=== PATIENT | male | born 1950 ===

== ENCOUNTER 2023-10-29 03:04 | Emergency (ER) | payer MEDICARE, OTHER ==
--- NOTE | 2023-10-29 03:14 | ED ---
General Adult HPI - General Stated complaint: Fall Time Seen by Provider: 10/29/23 03:05 Source: patient, EMS, RN notes reviewed, old records reviewed Limitations: altered mental status - History of Present Illness Initial comments: 73-year-old male with history of dementia presents with unwitnessed fall, head injury. Patient is on aspirin, no other anticoagulants or antiplatelet medications. Patient points to the site of injury on the left cellulitis. He has a small superficial laceration. Uncertain if there was loss consciousness. Patient [facility] at the [facility]. - Related Data Allergies Allergy/AdvReac Type Severity Reaction Status Date / Time Penicillins Allergy Unknown Verified 10/29/23 03:18 Review of Systems ROS Statement: Those systems with pertinent positive or pertinent negative responses have been documented in the HPI. ROS Other: All systems not noted in ROS Statement are negative. General Exam General appearance: alert, in no apparent distress Head exam: Present: normocephalic, other (1 cm superficial laceration in front of the left ear) Eye exam: Present: normal appearance, PERRL Respiratory exam: Present: normal lung sounds bilaterally. Absent: respiratory distress, wheezes Cardiovascular Exam: Present: regular rate, normal rhythm GI/Abdominal exam: Present: soft. Absent: distended, tenderness Extremities exam: Present: normal inspection, normal capillary refill. Absent: pedal edema Neurological exam: Present: alert. Absent: motor sensory deficit Skin exam: Present: warm, dry Course Vital Signs 10/29/23 03:09 Temperature 98.6 F Pulse Rate 72 Respiratory 18 Rate Blood Pressure 123/95 O2 Sat by Pulse 97 Oximetry Medical Decision Making - Medical Decision Making Was pt. sent in by a medical professional or institution (, PA, [employer], urgent care, hospital, or fci...) When possible be specific @ -No Did you speak to anyone other than the patient for history (EMS, parent, family, police, friend...)? What history was obtained from this source @ -No Did you review nursing and triage notes (agree or disagree)? Why? @ -I reviewed and agree with nursing and triage notes Were old charts reviewed (outside hosp., previous admission, EMS record, old EKG, old radiological studies, urgent care reports/EKG's, fci records)? Report findings @ -No old charts were reviewed Differential Diagnosis (chest pain, altered mental status, abdominal pain women, abdominal pain men, vaginal bleeding, weakness, fever, dyspnea, syncope, headache, dizziness, GI bleed, back pain, seizure, CVA, palpatations, mental health, musculoskeletal)? @ -Fall, traumatic injury from fall, intracranial hemorrhage EKG interpreted by me (3pts min.). @ -As above X-rays interpreted by me (1pt min.). @ -None done CT interpreted by me (1pt min.). @ -[The brain and C-spine negative for traumatic injury U/S interpreted by me (1pt. min.). @ -None done What testing was considered but not performed or refused? (CT, X-rays, U/S, labs)? Why? @ -None What meds were considered but not given or refused? Why? @ -None Did you discuss the management of the patient with other professionals (professionals i.e. , PA, [employer], lab, RT, psych nurse, social work associate, computer console operator, teacher, tax revenue officer, case fitter)? Give summary @ -No Was smoking cessation discussed for >3mins.? @ -No Was critical care preformed (if so, how long)? @ -No Were there social determinants of health that impacted care today? How? (Homelessness, low income, unemployed, alcoholism, drug addiction, transportation, low edu. Level, literacy, decrease access to med. care, [facility], rehab)? @ -No Was there de-escalation of care discussed even if they declined (Discuss DNR or withdrawal of care, Hospice)? DNR status @ -No What co-morbidities impacted this encounter? (DM, HTN, Smoking, COPD, CAD, Cancer, CVA, ARF, Chemo, Hep., AIDS, mental health diagnosis, sleep apnea, m orbid obesity)? @ -[Dementia Was patient admitted / discharged? Hospital course, mention meds given and route, prescriptions, significant lab abnormalities, going to OR and other pertinent info. @ -PT is stable for discharge back to fci Undiagnosed new problem with uncertain prognosis? @ -No Drug Therapy requiring intensive monitoring for toxicity (Heparin, Nitro, Insulin, Cardizem)? @ -No Were any procedures done? @ -No Diagnosis/symptom? @ -Fall, no serious injury Acute, or Chronic, or Acute on Chronic? @ -acute Uncomplicated (without systemic symptoms) or Complicated (systemic symptoms)? @ -default Side effects of treatment? @ -No Exacerbation, Progression, or Severe Exacerbation? @ -No Poses a threat to life or bodily function? How? (Chest pain, [place], [place], pneumonia, PE, COPD, DKA, ARF, appy, cholecystitis, CVA, Diverticulitis, Homicidal, Suicidal, threat to staff... and all critical care pts) @ -No Disposition Clinical Impression: Fall Disposition: HOME SELF-CARE Condition: Fair Instructions (If sedation given, give patient instructions): Fall Prevention for Older Adults (ED) Is patient prescribed a controlled substance at d/c from ED?: No Referrals: Deisy Welch DO [Primary Care Provider] - 1-2 days Time of Disposition: 04:57
[2023-10-29 03:31] VITALS: TEMP 98.6
--- NOTE | 2023-10-29 04:45 | CT ---
EXAM: CT Head Without Intravenous Contrast CLINICAL HISTORY: ITS.REASON CT Reason: fall TECHNIQUE: Axial computed tomography images of the head/brain without intravenous contrast. CTDI is 46.7 mGy and DLP is 1276 mGy-cm. This CT exam was performed using one or more of the following dose reduction techniques: automated exposure control, adjustment of the mA and/or kV according to patient size, and/or use of iterative reconstruction technique. COMPARISON: No relevant prior studies available. FINDINGS: Brain: No hemorrhage or mass effect. Ventricles: No hydrocephalus. Bones/joints: Unremarkable. Soft tissues: Unremarkable. Sinuses: No air fluid level. Mastoid air cells: Clear. IMPRESSION: No acute hemorrhage, hydrocephalus, or mass effect. EXAM: CT Cervical Spine Without Intravenous Contrast CLINICAL HISTORY: ITS.REASON CT Reason: fall TECHNIQUE: Axial computed tomography images of the cervical spine without intravenous contrast. CTDI is 13.3 mGy and DLP is 330.5 mGy-cm. This CT exam was performed using one or more of the following dose reduction techniques: automated exposure control, adjustment of the mA and/or kV according to patient size, and/or use of iterative reconstruction technique. COMPARISON: No relevant prior studies available. FINDINGS: Vertebrae: No acute fracture. Discs/spinal canal/neural foramina: degenerative changes. Soft tissues: No prevertebral swelling. IMPRESSION: No acute fracture or subluxation.
[2023-10-29 06:40] VITALS: BP 117/79; PULSE 60; RESP 16
== END 2023-10-29 06:21 | disposition home or self-care (01) ==
LOC: EC 03:04
DX: S01.312A Laceration without foreign body of left ear, initial encounter (principal); Z88.0 Allergy status to penicillin; W19.XXXA Unspecified fall, initial encounter
CPT/HCPCS: 70450; 72125; 99285

== ENCOUNTER 2024-02-19 13:04 | Observation (INO) | payer MEDICARE, OTHER ==
[2024-02-19] MEDS: HALOPERIDOL LACTATE 5 MG/ML 1 ML VIAL IM STA ×2 (13:29→14:33)
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
[2024-02-19 16:28] LABS: Basophils % (A) 0 %; Eosinophils % (A) 0 %; HCT 37.9 % (39.0-53.0); HGB 12.2 gm/dL (13.0-17.5); Lymphocytes # (A) 1.1 k/uL (1.0-4.8); Lymphocytes % (A) 10 %; MCH 33.9 pg (25.0-35.0); MCHC 32.1 g/dL (31.0-37.0); MCV 105.6 fL (80.0-100.0); Macrocytosis Slight; Mean Platelet Volume 7.5; Monocytes # (A) 0.8 k/uL (0-1.0); Monocytes % (A) 7 %; Neutrophils % (A) 82 %; Platelet Count 179 k/uL (150-450); RBC 3.59 m/uL (4.30-5.90); RDW 12.6 % (11.5-15.5)
[2024-02-19 16:42] LABS: ALT 43 U/L (4-49); AST 46 U/L (17-59); African American GFR (CKD) >90 (>60 ml/min/1.73 sqM); Albumin 3.4 g/dL (3.5-5.0); Alkaline Phosphatase 156 U/L (38-126); Anion Gap 5 mmol/L; Blood Urea Nitrogen 15 mg/dL (9-20); Calcium 8.9 mg/dL (8.4-10.2); Carbon Dioxide 27 mmol/L (22-30); Chloride 107 mmol/L (98-107); Glucose 101 mg/dL (74-99); Non-African American GFR(CKD) 82 (>60 ml/min/1.73 sqM); Potassium 4.5 mmol/L (3.5-5.1); Sodium 139 mmol/L (137-145); Total Bilirubin 0.7 mg/dL (0.2-1.3); Total Protein 6.4 g/dL (6.3-8.2)
[2024-02-19 17:45] LABS: Appearance,Urine Cloudy (Clear); Bilirubin,Urine Negative (Negative); Blood,Urine Moderate (Negative); Color,Urine Yellow; Glucose,Urine (UA) Negative (Negative); Ketones,Urine 1+ (Negative); Leukocyte Esterase,Urine Negative (Negative); Mucus,Urine Occasional /hpf; Nitrite,Urine Negative (Negative); Protein,Urine Trace (Negative); RBC,Urine 89 /hpf (0-5); Specific Gravity,Urine 1.023 (1.001-1.035); Squamous Epithelial Cell,Urine 1 /hpf (0-4); Urobilinogen,Urine <2.0 mg/dL (<2.0); WBC,Urine 2 /hpf (0-5)
[2024-02-19] MEDS: OLANZapine 10 MG VIAL IM STA (19:46)
--- NOTE | 2024-02-19 20:55 | CT ---
EXAMINATION TYPE: CT brain cspine wo con CT DLP: 1413.3 mGycm, Automated exposure control for dose reduction was used. DATE OF EXAM: 02/19/2024 8:28 PM COMPARISON: None. CLINICAL INDICATION:Male, 73 years old with history of altered mental status; AMS. Combative, Hx of s chizophrenia, bipolar, dementia and parkinsons. TECHNIQUE: Brain: Multiple axial CT images of the brain were obtained without IV contrast. Cspine: Axial CT images from the skull base to the inferior aspect of T2 we obtained without intraven ous contrast. Coronal and sagittal reformatted images were also reviewed. FINDINGS: Brain: Extra-axial spaces: No abnormal extra-axial fluid collections. Ventricular system: Appear dilated in proportion to the degree of cerebral atrophy. Cerebral parenchyma: No increased attenuation to suggest acute intraparenchymal hemorrhage. The gra y-white matter interface appears maintained. Moderate generalized brain atrophy. Scattered hypoatte nuating areas are seen within the cerebral white matter, nonspecific but most often seen with chronic microvascular ischemic changes; mild/moderate in degree. Cerebellum: No acute abnormality. Mass effect: No evidence of mass effect or midline shift. Intracranial vasculature: Unremarkable Soft tissues: No acute abnormality Visualized orbits: Orbital contents appear grossly intact. Radiodensities along the anterior left g lobe likely sequela of previous ophthalmologic surgery. Calvarium/osseous structures: No evidence of calvarial fracture. Paranasal sinuses and mastoid air cells: Clear. MRI is more sensitive for detecting acute processes such as infarct, and may be considered if clinica lly warranted. Cervical spine: Fracture: None seen. Osseous structures, spinal canal/neural foramina: Craniocervical junction is intact. Moderate multile roxanne degenerative disk disease and facet arthropathy throughout the cervical spine. Rkvy-mo-qamemaze s francisco canal and neural foraminal stenoses at each level. No critical stenosis is seen. Vertebral alignment: No traumatic malalignment. Preserved normal cervical lordosis. Neck soft tissues: No acute finding.. Calcifications noted involving the cervical carotid arteries. Other: Lung apices show no acute infiltrate or pneumothorax. There is some pleural thickening and pe ripheral fat. Minor reticulonodular apical opacities, likely chronic changes. IMPRESSION: CT head: 1. No CT evidence of an acute intracranial abnormality. 2. Atrophy and chronic microvascular ischemic white matter changes. CT cervical spine: 1. No evidence of acute cervical spine fracture or traumatic malalignment. 2. Moderate cervical spondylosis.
[2024-02-19] MEDS ORDERED: NALOXONE 0.4 MG/ML 1 ML VIAL IV PRN (21:25)
[2024-02-19] MEDS ORDERED: ACETAMINOPHEN TAB 325 MG TAB PO PRN (21:25)
[2024-02-19] MEDS ORDERED: OLANZapine 10 MG VIAL IM PRN (21:35)
[2024-02-19] MEDS ORDERED: ACETAMINOPHEN TAB 500 MG TAB PO PRN (21:37)
[2024-02-19] MEDS ORDERED: MAGNESIUM HYDROXIDE 2,400 MG/30 ML CUP PO PRN (21:37)
[2024-02-19] MEDS: MEMANTINE 10 MG TAB PO SCH (23:43)
[2024-02-19] MEDS: carvediloL 3.125 MG TAB PO SCH (23:43)
[2024-02-19] MEDS: DONEPEZIL 5 MG TAB PO SCH (23:43)
[2024-02-19] MEDS: traZODone HCL 50 MG TAB PO SCH (23:43)
[2024-02-19] MEDS: DOCUSATE 100 MG CAP PO SCH (23:44)
[2024-02-20 03:12] LABS: Carbamazepine (Tegretol) 6.5 UG/ML (4.0-12.0)
[2024-02-20] MEDS: CARBIDOPA-LEVODOPA 25-100 MG 1 EACH TAB PO SCH (06:24)
[2024-02-20] MEDS: ASPIRIN 81 MG PO SCH (08:53)
[2024-02-20 09:06] LABS: Basophils % (A) 0 %; Eosinophils % (A) 1 %; HGB 10.6 gm/dL (13.0-17.5); Lymphocytes # (A) 1.2 k/uL (1.0-4.8); Lymphocytes % (A) 22 %; MCH 34.2 pg (25.0-35.0); MCHC 33.1 g/dL (31.0-37.0); MCV 103.3 fL (80.0-100.0); Macrocytosis Slight; Mean Platelet Volume 7.7; Monocytes # (A) 0.5 k/uL (0-1.0); Monocytes % (A) 9 %; Neutrophils # (A) 3.4 k/uL (1.3-7.7); Neutrophils % (A) 65 %; Platelet Count 146 k/uL (150-450); RDW 13.3 % (11.5-15.5); WBC 5.2 k/uL (3.8-10.6)
[2024-02-20 09:59] LABS: African American GFR (CKD) 76 (>60 ml/min/1.73 sqM); Anion Gap 4 mmol/L; Blood Urea Nitrogen 17 mg/dL (9-20); Calcium 8.3 mg/dL (8.4-10.2); Carbon Dioxide 25 mmol/L (22-30); Chloride 106 mmol/L (98-107); Glucose 96 mg/dL (74-99); Non-African American GFR(CKD) 66 (>60 ml/min/1.73 sqM); Potassium 3.9 mmol/L (3.5-5.1); Sodium 135 mmol/L (137-145)
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
[2024-02-20] MEDS: ATORVASTATIN 40 MG TAB PO SCH (20:00)
[2024-02-20] MEDS: QUEtiapine 25 MG TAB PO SCH (20:00)
[2024-02-21] MEDS: ENOXAPARIN 40 MG/0.4 ML SYRINGE SQ SCH (08:34)
--- NOTE | 2024-02-21 11:30 | P.PN ---
Progress Note - Text Progress Note Date: 02/21/24 Interval history: Patient was seen today for psychiatric follow-up. Patient's nurse states that patient has been doing fairly well, was able to sleep through the night, has been taking medications, no agitation at this time. She states that he is also eating well on his own. Assembler Gold Frame attempted to see patient at the bedside, he was eating breakfast. He appeared to be more pleasant today, he shook writers hand, followed most directions. Appears to be more directable today. He denied hearing any voices or seeing things. States that he slept okay. Fairly concrete in responses. Did not offer any complaints. Denies any suicidal homicidal ideations intent or plan. MENTAL STATUS EXAM: General Appearance: Patient appears to be thin, elderly, stated age is alert, pleasant, attempts to cooperate. Patient appears to have fair hygiene and grooming wearing hospital gown with fair eye contact. Was eating his breakfast Behavior: Patient is calmly adding at the side of his bed, no agitation. Speech: Patient's speech is fluent and nonpressured. Hesitant, fairly concrete Mood/Affect: Patient reports their mood is "ok", affect is congruent improving affect Suicidality/Homicidality: Patient denies having any suicidal or homicidal ideation intent or plan. Perceptions: Patient denies any visual hallucinations and denies any auditory hallucinations Though content/process: [place], poor historian. Memory and concentration: AOX2, does not know today's date, grossly intact for the purposes of this session. 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 -Patient DOES NOT have decision making capacity at this time and is unable to reason through and communicate/appreciate the risks, benefits and alternatives to treatment. -Delirium precautions recommended with patient including - avoiding use of narcotics and NURSING ASSOCIATE sedatives, limit anticholinergic medications when possible, frequent re-orientation, minimize use of restraints, open window shades during the day and close them at night -Would recommend the following medication changes/additions: Please try to avoid benzodiazepines and anticholinergic medications. Due to patient's Parkinson's disease, a better suited antipsychotic for mood stabilization and psychosis/aggression would be Seroquel. Will increase dose of Seroquel to 50 mg nightly for sleep/psychosis/mood stabilization and discontinue trazodone at this time. Continue with Sinemet Namenda and Aricept as prescribed. Hold off on Tegretol and Risperdal at this time. -cheese factory worker to provide patient with outpatient mental health/psychiatry resources for appropriate follow up upon discharge -Communicated plan to patient's nurse -At this time psychiatry will sign off. Patient will currently stay one more day to allow time for observation before being discharged back to [place] -Please contact with any questions.
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
[2024-02-21] MEDS: QUEtiapine 50 MG TAB PO SCH (20:29)
[2024-02-21 23:11] VITALS: RESP 16
--- NOTE | 2024-02-22 12:52 | P.DS ---
Providers Date of admission: 02/19/24 21:27 Expected date of discharge: 02/22/24 Attending physician: Ro Ivy Consults: 02/19/24 21:25 Consult Physician Urgent Consulting Provider: Shyam Plata Consult Reason/Comments: Acute aggressive behavior, history of schizophrenia Do you want consulting provider notified?: Yes Primary care physician: Deisy Welch, DO Hospital Course: Final diagnosis -Aggressive behavior and agitation: Secondary to Parkinson's and parkinsonian dementia. Ruled out infectious causes, patient is not on any medications that can cause confusion except for his dementia medications which can sometimes cause confusion. -Parkinson's disease history -Parkinsonian dementia: Behavioral changes are expected in parkinsonian dementia. -Generalized deconditioning and weakness -Hypertension history -GI prophylaxis -DVT prophylaxis -Full code Discharge disposition Patient is being discharged in a stable condition with guarded prognosis to [facility]. Patient will follow-up with Dr. Welch in the outpatient setting upon discharge. Patient is to continue with current medications. Total time taken is greater than 35 minutes. Hospital course This is a 73-year-old male who was recently admitted with increased agitation and aggressive behavior and lives at [facility] with concerns of encephalopathy. Infectious workup and other underlying causes ruled out most likely secondary to parkinsonian dementia. Patient also with generalized weakness although was able to work with physical therapy and did well using his walker. Patient was seen and evaluated by psychiatry with adjustments made and has cleared the patient for discharge. Recommend outpatient [facility] follow-up as well. Please refer to other consultation notes for further HPI. Currently no reports of chest pain, shortness of breath, or palpitations. Patient is afebrile. No reports of nausea or vomiting and patient is tolerating diet. Patient will be going to [facility] today. Guarded prognosis Physical exam: Gen: This is a 73-year-old male who is awake, alert and oriented x 1, baseline, well-developed, elderly appearing, thin built HEENT: Head is atraumatic, normocephalic. Pupils equal, round. Sclerae is anicteric. NECK: Supple. No JVD. No lymphadenopathy. No thyromegaly. LUNGS: Clear to auscultation. No wheezes or rhonchi. No intercostal r etractions. HEART: Regular rate and rhythm. No murmur. ABDOMEN: Soft. Bowel sounds are present. No masses. No tenderness. EXTREMITIES: No pedal edema. No calf tenderness. NEUROLOGICAL: Patient is awake, alert and oriented x1. Cranial nerves 2 through 12 are grossly intact. Please refer to medication reconciliation sheet for a list of medications. The impression and plan of care has been dictated by Altagracia Gleason, Nurse Practitioner as directed. Dr. Mario Alberto MD I have performed a history and examination and MDM of this patient, discussed the same with the dictator, and agree with the dictator's assessment and plan as written ,documented as a scribe. Based on total visit time, I have performed more than 50% of the visit. Patient Condition at Discharge: Fair Plan - Discharge Summary New Discharge Prescriptions: New Enoxaparin [Lovenox] 40 mg SQ DAILY each QUEtiapine [SEROquel] 50 mg PO HS tab Continue rOPINIRole HCL [Requip] 1 mg PO TID@0700,1300,1900 Carbidopa-Levodopa 25-100 mg [Sinemet 25-100 mg] 1 tab PO TID@0700,1300,1900 carvediloL [Coreg] 3.125 mg PO BID Docusate [Colace] 100 mg PO HS Magnesium Hydroxide [Milk of Magnesia] 2,400 mg PO DAILY PRN PRN Reason: Constipation risperiDONE [RisperDAL] 1 mg PO HS Memantine [Namenda] 10 mg PO BID traZODone HCL [Desyrel] 25 mg PO HS Donepezil [Aricept] 5 mg PO HS Atorvastatin [Lipitor] 40 mg PO HS Aspirin EC [Ecotrin Low Dose] 81 mg PO DAILY Acetaminophen [Tylenol Extra Strength] 500 mg PO Q6H PRN PRN Reason: Pain Discontinued carBAMazepine [TEGretol XR] 200 mg PO BID Discharge Medication List Acetaminophen [Tylenol Extra Strength] 500 mg PO Q6H PRN 02/19/24 [History] Aspirin EC [Ecotrin Low Dose] 81 mg PO DAILY 02/19/24 [History] Atorvastatin [Lipitor] 40 mg PO HS 02/19/24 [History] Carbidopa-Levodopa 25-100 mg [Sinemet 25-100 mg] 1 tab PO TID@0700,1300,1900 02/19/24 [History] Docusate [Colace] 100 mg PO HS 02/19/24 [History] Donepezil [Aricept] 5 mg PO HS 02/19/24 [History] Magnesium Hydroxide [Milk of Magnesia] 2,400 mg PO DAILY PRN 02/19/24 [History] Memantine [Namenda] 10 mg PO BID 02/19/24 [History] carvediloL [Coreg] 3.125 mg PO BID 02/19/24 [History] rOPINIRole HCL [Requip] 1 mg PO TID@0700,1300,1900 02/19/24 [History] risperiDONE [RisperDAL] 1 mg PO HS 02/19/24 [History] traZODone HCL [Desyrel] 25 mg PO HS 02/19/24 [History] Enoxaparin [Lovenox] 40 mg SQ DAILY each 02/22/24 [Rx] QUEtiapine [SEROquel] 50 mg PO HS tab 02/22/24 [Rx] Follow up Appointment(s)/Referral(s): Deisy Welch DO [Primary Care Provider] - 1-2 days Activity/Diet/Wound Care/Special Instructions: Activity as tolerated Patient will be returning to [facility] Continue heart healthy diet Continue with medications as prescribed Discharge Disposition: TRANSFER TO SNF/ECF
[2024-02-22 20:06] VITALS: BP 148/92; PULSE 104; TEMP 98.9
== END 2024-02-22 21:32 ==
LOC: EC 13:04 → 4SSUR 21:27 → 5NMEDONC 21:36
PROVIDERS: ADMIT Hospitalist; ATTEND Hospitalist
DX: G20.A1 Parkinson's disease without dyskinesia, without mention of fluctuations (principal); F02.811 Dementia in other diseases classified elsewhere, unspecified severity, with agitation; F31.9 Bipolar disorder, unspecified; F20.9 Schizophrenia, unspecified; I10 Essential (primary) hypertension; Z79.82 Long term (current) use of aspirin; Z79.899 Other long term (current) drug therapy; Z88.0 Allergy status to penicillin
CPT/HCPCS: 96372 ×3; 99285; 36415; 97162; 97166; 80156; 80053; 80048; 84484; 85025 ×2; 81001; 72125; 70450; G0378 ×4; J1630; J1650 ×2

== ENCOUNTER 2024-02-27 11:05 | Emergency (ER) | payer MEDICARE, OTHER ==
[2024-02-27 11:22] VITALS: BP 154/80; PULSE 88; RESP 18; TEMP 98.7
--- NOTE | 2024-02-27 12:58 | ED ---
Altered Mental Status HPI - General Chief Complaint: Altered Mental Status Stated Complaint: Mental health Time Seen by Provider: 02/27/24 11:05 Source: patient, EMS, RN notes reviewed, old records reviewed, Caregiver Mode of arrival: EMS Limitations: altered mental status - History of Present Illness Initial Comments: 73-year-old male presents emergency department via EMS from jail for evaluation of aggressive behavior patient was recently admitted for similar complaints patient has severe dementia essentially nonverbal and unable to communicate any further complaints no injuries noted no other reports given by EMS. - Related Data Home Medications Medication Instructions Recorded Confirmed Acetaminophen [Tylenol Extra 500 mg PO Q6H PRN 02/19/24 02/19/24 Strength] Aspirin EC [Ecotrin Low Dose] 81 mg PO DAILY 02/19/24 02/19/24 Atorvastatin [Lipitor] 40 mg PO HS 02/19/24 02/19/24 Carbidopa-Levodopa 25-100 mg 1 tab PO TID@0700,1300,1900 02/19/24 02/19/24 [Sinemet 25-100 mg] Docusate [Colace] 100 mg PO HS 02/19/24 02/19/24 Donepezil [Aricept] 5 mg PO HS 02/19/24 02/19/24 Magnesium Hydroxide [Milk of 2,400 mg PO DAILY PRN 02/19/24 02/19/24 Magnesia] Memantine [Namenda] 10 mg PO BID 02/19/24 02/19/24 carvediloL [Coreg] 3.125 mg PO BID 02/19/24 02/19/24 rOPINIRole HCL [Requip] 1 mg PO TID@0700,1300,1900 02/19/24 02/19/24 traZODone HCL [Desyrel] 25 mg PO HS 02/19/24 02/19/24 Previous Rx's Medication Instructions Recorded Enoxaparin [Lovenox] 40 mg SQ DAILY each 02/22/24 QUEtiapine [SEROquel] 50 mg PO HS tab 02/22/24 Allergies Allergy/AdvReac Type Severity Reaction Status Date / Time Penicillins Allergy Unknown Verified 02/27/24 11:10 Review of Systems ROS Statement: Those systems with pertinent positive or pertinent negative responses have been documented in the HPI. ROS Other: All systems not noted in ROS Statement are negative. Past Medical History Past Medical History: Dementia, Hypertension Additional Past Medical History / Comment(s): Bradycardia, Parkinson's Disease History of Any Multi-Drug Resistant Organisms: Unobtainable Past Surgical History: Unable to Obtain Past Anesthesia/Blood Transfusion Reactions: Unable to Obtain Past Psychological History: Bipolar, Schizophrenia Smoking Status: Unknown if ever smoked Past Alcohol Use History: Unable to Obtain Past Drug Use History: Unable to Obtain General Exam Limitations: altered mental status General appearance: alert, in no apparent distress Head exam: Present: atraumatic, normocephalic, normal inspection Eye exam: Present: normal appearance, PERRL, EOMI. Absent: scleral icterus, conjunctival injection, periorbital swelling ENT exam: Present: normal exam, normal oropharynx, mucous membranes moist Neck exam: Present: normal inspection, full ROM. Absent: tenderness, meningismus, lymphadenopathy Respiratory exam: Present: normal lung sounds bilaterally. Absent: respiratory distress, wheezes, rales, rhonchi, stridor Cardiovascular Exam: Present: regular rate, normal rhythm, normal heart sounds. Absent: systolic murmur, diastolic murmur, rubs, gallop, clicks Neurological exam: Present: alert. Absent: oriented X3 Skin exam: Present: warm, dry, intact, normal color. Absent: rash Course Vital Signs 02/27/24 11:10 Temperature 98.7 F Pulse Rate 88 Respiratory 18 Rate Blood Pressure 154/80 O2 Sat by Pulse 97 Oximetry Medical Decision Making - Medical Decision Making Was pt. sent in by a medical professional or institution (, PA, SUEDING AND BUFFING MACHINE OPERATOR, urgent care, hospital, or jail...) When possible be specific @ -[facility] Did you speak to anyone other than the patient for history (EMS, parent, family, police, friend...)? What history was obtained from this source @ -No Did you review nursing and triage notes (agree or disagree)? Why? @ -I reviewed and agree with nursing and triage notes Were old charts reviewed (outside hosp., previous admission, EMS record, old EKG, old radiological studies, urgent care reports/EKG's, jail records)? Report findings @ -No old charts were reviewed Differential Diagnosis (chest pain, altered mental status, abdominal pain women, abdominal pain men, vaginal bleeding, weakness, fever, dyspnea, syncope, headache, dizziness, GI bleed, back pain, seizure, CVA, palpatations, mental health, musculoskeletal)? @ -Differential Mental Health Depression, anxiety, bipolar, psychosis, schizophrenia, borderline personality, situational depression, adjustment disorder, behavioral disorder, brain tumor, malingering, substance abuse, encephalopathy, medication reaction, dementia, hypothyroidism, degenerative neurologic disorder, lupus.... This is not meant to be all-inclusive list EKG interpreted by me (3pts min.). @ -As above X-rays interpreted by me (1pt min.). @ -None done CT interpreted by me (1pt min.). @ -None done U/S interpreted by me (1pt. min.). @ -None done What testing was considered but not performed or refused? (CT, X-rays, U/S, labs)? Why? @ -None What meds were considered but not given or refused? Why? @ -None Did you discuss the management of the patient with other professionals (professionals i.e. , PA, SUEDING AND BUFFING MACHINE OPERATOR, lab, RT, psych nurse, health and social care teacher, film flat inspector, teacher, air support control officer, corrections caseworker)? Give summary @ -EPS, psychiatrist discussed and evaluated the patient patient is stable for discharge Was smoking cessation discussed for >3mins.? @ -No Was critical care preformed (if so, how long)? @ -No Were there social determinants of health that impacted care today? How? (Homelessness, low income, unemployed, alcoholism, drug addiction, transportation, low edu. Level, literacy, decrease access to med. care, fdc, rehab)? @ -No Was there de-escalation of care discussed even if they declined (Discuss DNR or withdrawal of care, Hospice)? DNR status @ -No What co-morbidities impacted this encounter? (DM, HTN, Smoking, COPD, CAD, C ancer, CVA, ARF, Chemo, Hep., AIDS, mental health diagnosis, sleep apnea, morbid obesity)? @ -Dementia, schizophrenia Was patient admitted / discharged? Hospital course, mention meds given and route, prescriptions, significant lab abnormalities, going to OR and other pertinent info. @ -Discharge laboratory studies unremarkable evaluated by EPS recommended to be discharged back to [facility]. Undiagnosed new problem with uncertain prognosis? @ -No Drug Therapy requiring intensive monitoring for toxicity (Heparin, Nitro, Insulin, Cardizem)? @ -No Were any procedures done? @ -No Diagnosis/symptom? @ -Schizophrenia, dementia Acute, or Chronic, or Acute on Chronic? @ -Acute Uncomplicated (without systemic symptoms) or Complicated (systemic symptoms)? @ -Uncomplicated Side effects of treatment? @ -No Exacerbation, Progression, or Severe Exacerbation? @ -No Poses a threat to life or bodily function? How? (Chest pain, [place], [place], pneumonia, PE, COPD, DKA, ARF, appy, cholecystitis, CVA, Diverticulitis, Homicidal, Suicidal, threat to staff... and all critical care pts) @ -No - Lab Data Result diagrams: 02/27/24 12:50 02/27/24 12:51 Lab Results 02/27/24 02/27/24 02/27/24 Range/Units 12:50 12:50 12:51 WBC 10.0 (3.8-10.6) k/uL RBC 3.06 L (4.30-5.90) m/uL Hgb 10.7 L (13.0-17.5) gm/dL Hct 31.5 L (39.0-53.0) % MCV 103.0 H (80.0-100.0) fL MCH 35.0 (25.0-35.0) pg MCHC 33.9 (31.0-37.0) g/dL RDW 13.6 (11.5-15.5) % Plt Count 242 (150-450) k/uL MPV 7.8 Neutrophils % 86 % Lymphocytes % 9 % Monocytes % 4 % Eosinophils % 1 % Basophils % 0 % Neutrophils # 8.6 H (1.3-7.7) k/uL Lymphocytes # 0.9 L (1.0-4.8) k/uL Monocytes # 0.4 (0-1.0) k/uL Eosinophils # 0.1 (0-0.7) k/uL Basophils # 0.0 (0-0.2) k/uL Macrocytosis Slight PT 10.7 (10.0-12.5) sec INR 1.0 (<1.2) APTT 21.1 L (22.0-30.0) sec Sodium 134 L (137-145) mmol/L Potassium 4.3 (3.5-5.1) mmol/L Chloride 103 (98-107) mmol/L Carbon Dioxide 23 (22-30) mmol/L Anion Gap 8 mmol/L BUN 20 (9-20) mg/dL Creatinine 0.81 (0.66-1.25) mg/dL Est GFR (CKD-EPI)AfAm >90 (>60 ml/min/1.73 sqM) Est GFR (CKD-EPI)NonAf 87 (>60 ml/min/1.73 sqM) Glucose 172 H (74-99) mg/dL Calcium 8.8 (8.4-10.2) mg/dL Total Bilirubin 0.9 (0.2-1.3) mg/dL AST 27 (17-59) U/L ALT 58 H (4-49) U/L Alkaline Phosphatase 102 (38-126) U/L Ammonia (<30) umol/L Troponin I (0.000-0.034) ng/mL Total Protein 6.3 (6.3-8.2) g/dL Albumin 3.3 L (3.5-5.0) g/dL Serum Alcohol <10 mg/dL 02/27/24 02/27/24 Range/Units 12:51 12:51 WBC (3.8-10.6) k/uL RBC (4.30-5.90) m/uL Hgb (13.0-17.5) gm/dL Hct (39.0-53.0) % MCV (80.0-100.0) fL MCH (25.0-35.0) pg MCHC (31.0-37.0) g/dL RDW (11.5-15.5) % Plt Count (150-450) k/uL MPV Neutrophils % % Lymphocytes % % Monocytes % % Eosinophils % % Basophils % % Neutrophils # (1.3-7.7) k/uL Lymphocytes # (1.0-4.8) k/uL Monocytes # (0-1.0) k/uL Eosinophils # (0-0.7) k/uL Basophils # (0-0.2) k/uL Macrocytosis PT (10.0-12.5) sec INR (<1.2) APTT (22.0-30.0) sec Sodium (137-145) mmol/L Potassium (3.5-5.1) mmol/L Chloride (98-107) mmol/L Carbon Dioxide (22-30) mmol/L Anion Gap mmol/L BUN (9-20) mg/dL Creatinine (0.66-1.25) mg/dL Est GFR (CKD-EPI)AfAm (>60 ml/min/1.73 sqM) Est GFR (CKD-EPI)NonAf (>60 ml/min/1.73 sqM) Glucose (74-99) mg/dL Calcium (8.4-10.2) mg/dL Total Bilirubin (0.2-1.3) mg/dL AST (17-59) U/L ALT (4-49) U/L Alkaline Phosphatase (38-126) U/L Ammonia <9 (<30) umol/L Troponin I <0.012 (0.000-0.034) ng/mL Total Protein (6.3-8.2) g/dL Albumin (3.5-5.0) g/dL Serum Alcohol mg/dL - EKG Data -: EKG Interpreted by Me EKG Comments: EKG performed at 12: 45 sinus tachycardia rate of 102 AL 147 QRS 138 QT/QTc 340/399 Disposition Clinical Impression: Schizophrenia, Aggressive behavior Disposition: HOME SELF-CARE Condition: Stable Additional Instructions: Please return to the Emergency Department if symptoms worsen or any other concerns. Is patient prescribed a controlled substance at d/c from ED?: No Referrals: Deisy Welch DO [Primary Care Provider] - 1-2 days Time of Disposition: 15:15
[2024-02-27 13:09] LABS: Basophils % (A) 0 %; Eosinophils # (A) 0.1 k/uL (0-0.7); Eosinophils % (A) 1 %; HCT 31.5 % (39.0-53.0); HGB 10.7 gm/dL (13.0-17.5); Lymphocytes # (A) 0.9 k/uL (1.0-4.8); Lymphocytes % (A) 9 %; MCHC 33.9 g/dL (31.0-37.0); Macrocytosis Slight; Mean Platelet Volume 7.8; Monocytes # (A) 0.4 k/uL (0-1.0); Monocytes % (A) 4 %; Neutrophils # (A) 8.6 k/uL (1.3-7.7); Neutrophils % (A) 86 %; Platelet Count 242 k/uL (150-450); RBC 3.06 m/uL (4.30-5.90); RDW 13.6 % (11.5-15.5)
[2024-02-27 13:19] LABS: ALT 58 U/L (4-49); AST 27 U/L (17-59); African American GFR (CKD) >90 (>60 ml/min/1.73 sqM); Albumin 3.3 g/dL (3.5-5.0); Alcohol <10 mg/dL; Alkaline Phosphatase 102 U/L (38-126); Anion Gap 8 mmol/L; Blood Urea Nitrogen 20 mg/dL (9-20); Calcium 8.8 mg/dL (8.4-10.2); Carbon Dioxide 23 mmol/L (22-30); Chloride 103 mmol/L (98-107); Glucose 172 mg/dL (74-99); Non-African American GFR(CKD) 87 (>60 ml/min/1.73 sqM); Potassium 4.3 mmol/L (3.5-5.1); Sodium 134 mmol/L (137-145); Total Bilirubin 0.9 mg/dL (0.2-1.3); Total Protein 6.3 g/dL (6.3-8.2)
[2024-02-27 13:37] LABS: Partial Thromboplastin Time 21.1 sec (22.0-30.0); Prothrombin Time 10.7 sec (10.0-12.5)
== END 2024-02-27 16:03 | disposition home or self-care (01) ==
LOC: EC 11:05
DX: F20.9 Schizophrenia, unspecified (principal); I45.10 Unspecified right bundle-branch block; I44.4 Left anterior fascicular block; Z88.0 Allergy status to penicillin
CPT/HCPCS: 36415; 80053; 80320; 82140; 84484; 85025; 85610; 85730; 93005; 99285

== ENCOUNTER 2024-08-01 22:22 | Observation (INO) | payer MEDICARE, OTHER ==
--- NOTE | 2024-08-01 22:32 | ED ---
Fall HPI - General Chief Complaint: Fall Stated Complaint: Fall Time Seen by Provider: 08/01/24 22:31 Source: EMS, RN notes reviewed, old records reviewed Mode of arrival: EMS Limitations: language barrier, altered mental status, physical limitation - History of Present Illness Initial Comments: This is a 74-year-old male found down patient was found down unknown but thought to possibly have fall with trauma. Patient has persistent weakness here in the ER history provided by EMS and patient's charting as patient is unable to provide history here in the ER MD Complaint: fall, other (Weakness altered mental status) -: unknown When Fall Occurred: unsure Fall Witnessed: no Place Fall Occurred: home Loss of Consciousness: none Prolonged Down Time?: no Symptoms Prior to Fall: none Severity: moderate Severity scale (1-10): 2 Context: tripped/slipped Associated Symptoms: denies - Related Data Home Medications Medication Instructions Recorded Confirmed Aspirin EC [Ecotrin Low Dose] 81 mg PO DAILY 02/19/24 08/10/24 Atorvastatin [Lipitor] 40 mg PO HS 02/19/24 08/10/24 Carbidopa-Levodopa 25-100 mg 1 tab PO TID 02/19/24 08/10/24 [Sinemet 25-100 mg] Memantine [Namenda] 10 mg PO BID 02/19/24 08/10/24 carvediloL [Coreg] 3.125 mg PO BID 02/19/24 08/10/24 rOPINIRole HCL [Requip] 1 mg PO TID 02/19/24 08/10/24 traZODone HCL [Desyrel] 50 mg PO HS 02/19/24 08/10/24 Acetaminophen [Tylenol 8 Hour] 650 mg PO Q8H PRN 08/02/24 08/10/24 Calcium Carbonate/Vitamin D3 1 tab PO BID 08/02/24 08/10/24 [Calcium 600-D3 20 mcg (800 Unit)] Lactulose [Constulose] 20 gm PO DAILY 08/02/24 08/10/24 Multivitamins, Thera [Multivitamin 1 tab PO HS 08/02/24 08/10/24 (formulary)] Pimavanserin Tartrate [Nuplazid] 34 mg PO DAILY 08/02/24 08/10/24 Sennosides [Senokot] 17.2 mg PO HS 08/02/24 08/10/24 carBAMazepine [TEGretol] 200 mg PO BID 08/02/24 08/10/24 ARIPiprazole [Abilify] 15 mg PO DAILY 08/10/24 08/10/24 Donepezil [Aricept] 5 mg PO HS 08/10/24 08/10/24 haloperidoL [Haldol] 1 mg PO Q4H PRN 08/10/24 08/10/24 Allergies Allergy/AdvReac Type Severity Reaction Status Date / Time Penicillins Allergy Unknown Verified 08/10/24 14:38 Review of Systems ROS Statement: Those systems with pertinent positive or pertinent negative responses have been documented in the HPI. ROS Other: All systems not noted in ROS Statement are negative. Past Medical History Past Medical History: Dementia, Hypertension Additional Past Medical History / Comment(s): Bradycardia, Parkinson's Disease History of Any Multi-Drug Resistant Organisms: Unobtainable Past Surgical History: Unable to Obtain Past Anesthesia/Blood Transfusion Reactions: Unable to Obtain Past Psychological History: Bipolar, Schizophrenia Smoking Status: Unknown if ever smoked Past Alcohol Use History: Unable to Obtain Past Drug Use History: Unable to Obtain General Exam General appearance: alert, in no apparent distress Head exam: Present: atraumatic, normocephalic, normal inspection Eye exam: Present: normal appearance, PERRL, EOMI. Absent: scleral icterus, conjunctival injection, periorbital swelling ENT exam: Present: normal exam, mucous membranes moist Neck exam: Present: normal inspection. Absent: tenderness, meningismus, lymphadenopathy Respiratory exam: Present: normal lung sounds bilaterally. Absent: respiratory distress, wheezes, rales, rhonchi, stridor Cardiovascular Exam: Present: regular rate, normal rhythm, normal heart sounds. Absent: systolic murmur, diastolic murmur, rubs, gallop, clicks GI/Abdominal exam: Present: soft, normal bowel sounds. Absent: distended, tenderness, guarding, rebound, rigid Extremities exam: Present: normal inspection, full ROM, normal capillary refill. Absent: tenderness, pedal edema, joint swelling, calf tenderness Back exam: Present: normal inspection Neurological exam: Present: alert, oriented X3, CN II-XII intact Psychiatric exam: Present: normal affect, normal mood Skin exam: Present: warm, dry, intact, normal color. Absent: rash Course Vital Signs 08/01/24 08/01/24 08/02/24 22:24 23:00 00:05 Temperature 97.8 F Pulse Rate 75 74 69 Pulse Rate [ Fiction And Nonfiction Author ] Respiratory 18 19 11 L Rate Blood Pressure 150/93 133/88 100/67 Blood Pressure [Right Arm] O2 Sat by Pulse 97 97 97 Oximetry 08/02/24 08/02/24 08/02/24 00:55 01:00 06:28 Temperature Pulse Rate 68 68 Pulse Rate [ 76 Fiction And Nonfiction Author ] Respiratory 11 L 18 16 Rate Blood Pressure 101/68 101/68 Blood Pressure 114/76 [Right Arm] O2 Sat by Pulse 97 96 98 Oximetry 08/02/24 08/02/24 08/02/24 07:49 07:54 08:00 Temperature Pulse Rate 66 66 68 Pulse Rate [ Fiction And Nonfiction Author ] Respiratory 16 16 16 Rate Blood Pressure 105/69 105/69 105/69 Blood Pressure [Right Arm] O2 Sat by Pulse 96 96 96 Oximetry 08/02/24 08/02/24 08/02/24 09:00 10:00 10:02 Temperature Pulse Rate 68 88 75 Pulse Rate [ Fiction And Nonfiction Author ] Respiratory 16 16 18 Rate Blood Pressure 113/74 109/71 126/76 Blood Pressure [Right Arm] O2 Sat by Pulse 94 L 91 L 91 L Oximetry 08/02/24 08/02/24 08/02/24 11:00 12:00 13:00 Temperature Pulse Rate 88 81 71 Pulse Rate [ Fiction And Nonfiction Author ] Respiratory 18 18 18 Rate Blood Pressure 126/76 127/85 127/85 Blood Pressure [Right Arm] O2 Sat by Pulse 91 L 96 97 Oximetry 08/02/24 08/02/24 08/02/24 14:00 15:00 16:00 Temperature Pulse Rate 70 76 85 Pulse Rate [ Fiction And Nonfiction Author ] Respiratory 16 16 18 Rate Blood Pressure 113/77 128/75 132/72 Blood Pressure [Right Arm] O2 Sat by Pulse 96 95 97 Oximetry 08/02/24 08/02/24 08/02/24 17:37 19:30 20:42 Temperature Pulse Rate 91 84 89 Pulse Rate [ Fiction And Nonfiction Author ] Respiratory 18 19 18 Rate Blood Pressure 136/75 169/106 144/95 Blood Pressure [Right Arm] O2 Sat by Pulse 95 97 95 Oximetry 08/02/24 21:12 Temperature Pulse Rate 86 Pulse Rate [ Fiction And Nonfiction Author ] Respiratory 18 Rate Blood Pressure 152/99 Blood Pressure [Right Arm] O2 Sat by Pulse 96 Oximetry - Reevaluation(s) Reevaluation #1: 08/02/24 00:53 Medical records reviewed Reevaluation #2: 08/02/24 00:53 Symptoms unchanged Reevaluation #3: 08/02/24 00:53 Informed of results and questions answered Reevaluation #4: Was pt. sent in by a medical professional or institution (, [employer], LEAK PATCHER, urgent care, hospital, or senior care...) When possible be specific @ -no Did you speak to anyone other than the patient for history (EMS, parent, family, police, friend...)? What history was obtained from this source @ -no Did you review nursing and triage notes (agree or disagree)? Why? @ -agree Are old charts reviewed (outside hosp., previous admission, EMS record, old EKG, old radiological studies, urgent care reports/EKG's, senior care records)? Repo rt findings @ -yes Differential Diagnosis (chest pain, altered mental status, abdominal pain women, abdominal pain men, vaginal bleeding, weakness, fever, dyspnea, syncope, headache, dizziness, GI bleed, back pain, seizure, CVA, palpatations, mental health, musculoskeletal)? @ -prior EKG interpreted by me (3pts min.). @ -yes X-rays interpreted by me (1pt min.). @ -yes negative for acute disease CT interpreted by me (1pt min.). @ -Yes negative for acute disease U/S interpreted by me (1pt. min.). @ -no What testing was considered but not performed or refused? (CT, X-rays, U/S, labs)? Why? @ -none What meds were considered but not given or refused? Why? @ -none Did you discuss the management of the patient with other professionals (professionals i.e. [employer] Valerio, LEAK PATCHER, lab, RT, psych nurse, social media job titles, crime scene analyst, teacher, transportation security officer, continuous pillowcase cutter)? Give summary @ -no Was smoking cessation discussed for >3mins.? @ -no Was critical care preformed (if so, how long)? @ -no Were there social determinants of health that impacted care today? How? (Homelessness, low income, unemployed, alcoholism, drug addiction, transportation, low edu. Level, literacy, decrease access to med. care, fpc, rehab)? @ -none Was there de-escalation of care discussed even if they declined (Discuss DNR or withdrawal of care, Hospice)? DNR status @ -no What co-morbidities impacted this encounter? (DM, HTN, Smoking, COPD, CAD, Cancer, CVA, ARF, Chemo, Hep., AIDS, mental health diagnosis, sleep apnea, morbid obesity)? @ -none Was patient admitted / discharged? Hospital course, mention meds given and route, prescriptions, significant lab abnormalities, going to OR and other pertinent info. @ - 74 male to ER for evaluation of altered mental status weakness likely fall significant hyponatremia patient will admit for further monitoring and evaluation, hydration Admitted Undiagnosed new problem with uncertain prognosis? @ -no Drug Therapy requiring intensive monitoring for toxicity (Heparin, Nitro, Insulin, Cardizem)? @ -no Were any procedures done? @ -no Diagnosis/symptom? @ -Hyponatremia altered mental status weakness Acute, or Chronic, or Acute on Chronic? @ -Acute Uncomplicated (without systemic symptoms) or Complicated (systemic symptoms)? @ -Complicated Side effects of treatment? @ -no Exacerbation, Progression, or Severe Exacerbation? @ -exacerbation Poses a threat to life or bodily function? How? (Chest pain, [place], [place], pneumonia, PE, COPD, DKA, ARF, appy, cholecystitis, CVA, Diverticulitis, Homicidal, Suicidal, threat to staff... and all critical care pts) @ -yes Reevaluation #5: Differential Altered Mental Status: Hypoglycemia, DKA, hypercapnia, ETOH, overdose, CO poisoning, trauma, myxedema coma, HTN encephalopathy, infection, encephalitis, psychosis, intercranial hemorrhage, hepatic encephalopathy, meningitis, CVA, this is not meant to be an all-inclusive list - Consultations Consultation #1: Spoke with [facility] who agrees to admit this patient Medical Decision Making - Medical Decision Making 74 male to ER for evaluation of altered mental status weakness likely fall significant hyponatremia patient will admit for further monitoring and evaluation, hydration - Lab Data Result diagrams: 08/03/24 03:13 08/03/24 03:13 Lab Results 08/01/24 08/01/24 08/01/24 Range/Units 22:32 22:35 22:35 WBC 4.0 (3.8-10.6) k/uL RBC 3.00 L (4.30-5.90) m/uL Hgb 10.6 L (13.0-17.5) gm/dL Hct 31.2 L (39.0-53.0) % MCV 104.0 H (80.0-100.0) fL MCH 35.3 H (25.0-35.0) pg MCHC 33.9 (31.0-37.0) g/dL RDW 12.8 (11.5-15.5) % Plt Count 203 (150-450) k/uL MPV 7.1 Neutrophils % 55 % Lymphocytes % 28 % Monocytes % 10 % Eosinophils % 3 % Basophils % 0 % Neutrophils # 2.2 (1.3-7.7) k/uL Lymphocytes # 1.1 (1.0-4.8) k/uL Monocytes # 0.4 (0-1.0) k/uL Eosinophils # 0.1 (0-0.7) k/uL Basophils # 0.0 (0-0.2) k/uL Macrocytosis Slight PT 10.1 (10.0-12.5) sec INR 0.9 (<1.2) APTT 24.7 (22.0-30.0) sec Sodium (137-145) mmol/L Potassium (3.5-5.1) mmol/L Chloride (98-107) mmol/L Carbon Dioxide (22-30) mmol/L Anion Gap mmol/L BUN (9-20) mg/dL Creatinine (0.66-1.25) mg/dL Est GFR (CKD-EPI)AfAm (>60 ml/min/1.73 sqM) Est GFR (CKD-EPI)NonAf (>60 ml/min/1.73 sqM) Glucose (74-99) mg/dL POC Glucose (mg/dL) 124 H (70-110) mg/dL POC Glu Warrant Clerk ID Achatz, Savanah Plasma Lactic Acid Jason (0.7-2.0) mmol/L Calcium (8.4-10.2) mg/dL Phosphorus (2.5-4.5) mg/dL Magnesium (1.6-2.3) mg/dL Total Bilirubin (0.2-1.3) mg/dL AST (17-59) U/L ALT (4-49) U/L Alkaline Phosphatase (38-126) U/L Troponin I (0.000-0.034) ng/mL Total Protein (6.3-8.2) g/dL Albumin (3.5-5.0) g/dL 08/01/24 08/01/24 08/01/24 Range/Units 22:35 22:35 22:35 WBC (3.8-10.6) k/uL RBC (4.30-5.90) m/uL Hgb (13.0-17.5) gm/dL Hct (39.0-53.0) % MCV (80.0-100.0) fL MCH (25.0-35.0) pg MCHC (31.0-37.0) g/dL RDW (11.5-15.5) % Plt Count (150-450) k/uL MPV Neutrophils % % Lymphocytes % % Monocytes % % Eosinophils % % Basophils % % Neutrophils # (1.3-7.7) k/uL Lymphocytes # (1.0-4.8) k/uL Monocytes # (0-1.0) k/uL Eosinophils # (0-0.7) k/uL Basophils # (0-0.2) k/uL Macrocytosis PT (10.0-12.5) sec INR (<1.2) APTT (22.0-30.0) sec Sodium 126 L (137-145) mmol/L Potassium 4.7 (3.5-5.1) mmol/L Chloride 95 L (98-107) mmol/L Carbon Dioxide 26 (22-30) mmol/L Anion Gap 5 mmol/L BUN 20 (9-20) mg/dL Creatinine 0.91 (0.66-1.25) mg/dL Est GFR (CKD-EPI)AfAm >90 (>60 ml/min/1.73 sqM) Est GFR (CKD-EPI)NonAf 82 (>60 ml/min/1.73 sqM) Glucose 112 H (74-99) mg/dL POC Glucose (mg/dL) (70-110) mg/dL POC Glu Warrant Clerk ID Plasma Lactic Acid Jason 0.8 (0.7-2.0) mmol/L Calcium 8.6 (8.4-10.2) mg/dL Phosphorus 3.2 (2.5-4.5) mg/dL Magnesium 1.9 (1.6-2.3) mg/dL Total Bilirubin 0.7 (0.2-1.3) mg/dL AST 34 (17-59) U/L ALT 6 (4-49) U/L Alkaline Phosphatase 88 (38-126) U/L Troponin I <0.012 (0.000-0.034) ng/mL Total Protein 6.5 (6.3-8.2) g/dL Albumin 3.7 (3.5-5.0) g/dL - EKG Data -: EKG Interpreted by Me (EKG is sinus 75 TX 197 QRS 151 QTc 448) - Radiology Data Radiology results: report reviewed (Brain C-spine chest and pelvis x-ray negative for traumatic injury), image reviewed Disposition Clinical Impression: Acute encephalopathy, Fall, Weakness, Hyponatremia Disposition: ADMITTED IP TO THIS HOSP Condition: Fair Is patient prescribed a controlled substance at d/c from ED?: No Time of Disposition: 00:50
[2024-08-01 22:34] LABS: Glucose,Whole Blood 124 mg/dL (70-110)
[2024-08-01] MEDS: SODIUM CHLORIDE 0.9% 1,000 ML IV STA (22:36)
[2024-08-01 22:46] LABS: Basophils % (A) 0 %; Eosinophils # (A) 0.1 k/uL (0-0.7); Eosinophils % (A) 3 %; HCT 31.2 % (39.0-53.0); HGB 10.6 gm/dL (13.0-17.5); Lymphocytes # (A) 1.1 k/uL (1.0-4.8); Lymphocytes % (A) 28 %; MCH 35.3 pg (25.0-35.0); MCHC 33.9 g/dL (31.0-37.0); Macrocytosis Slight; Mean Platelet Volume 7.1; Monocytes # (A) 0.4 k/uL (0-1.0); Monocytes % (A) 10 %; Neutrophils # (A) 2.2 k/uL (1.3-7.7); Neutrophils % (A) 55 %; Platelet Count 203 k/uL (150-450); RDW 12.8 % (11.5-15.5)
[2024-08-01 22:56] LABS: INR 0.9 (<1.2); Partial Thromboplastin Time 24.7 sec (22.0-30.0); Prothrombin Time 10.1 sec (10.0-12.5)
[2024-08-01 23:00] LABS: ALT 6 U/L (4-49); AST 34 U/L (17-59); African American GFR (CKD) >90 (>60 ml/min/1.73 sqM); Albumin 3.7 g/dL (3.5-5.0); Alkaline Phosphatase 88 U/L (38-126); Anion Gap 5 mmol/L; Blood Urea Nitrogen 20 mg/dL (9-20); Calcium 8.6 mg/dL (8.4-10.2); Carbon Dioxide 26 mmol/L (22-30); Chloride 95 mmol/L (98-107); Glucose 112 mg/dL (74-99); Magnesium 1.9 mg/dL (1.6-2.3); Non-African American GFR(CKD) 82 (>60 ml/min/1.73 sqM); Phosphorus 3.2 mg/dL (2.5-4.5); Potassium 4.7 mmol/L (3.5-5.1); Sodium 126 mmol/L (137-145); Total Bilirubin 0.7 mg/dL (0.2-1.3); Total Protein 6.5 g/dL (6.3-8.2)
[2024-08-02] MEDS ORDERED: NALOXONE 0.4 MG/ML 1 ML VIAL IV PRN (00:44)
[2024-08-02] MEDS ORDERED: MORPHINE SULFATE 4 MG/ML SYRINGE IV PRN (00:44)
[2024-08-02] MEDS ORDERED: ONDANSETRON 4 MG/2 ML VIAL IVP PRN (00:44)
--- NOTE | 2024-08-02 00:58 | CT ---
EXAM: CT Head Without Intravenous Contrast CLINICAL HISTORY: ITS.REASON CT Reason: fall TECHNIQUE: Axial computed tomography images of the head/brain without intravenous contrast. CTDI is 45.2 mGy and DLP is 1071 mGy-cm. This CT exam was performed using one or more of the following dose reduction techniques: automated exposure control, adjustment of the mA and/or kV according to patient size, and/or use of iterative reconstruction technique. COMPARISON: No relevant prior studies available. FINDINGS: Brain: Remote ischemic injury of the left occipital lobe with encephalomalacia and gliosis. No hemorrhage. No significant white matter disease. No edema. Ventricles: Unremarkable. No ventriculomegaly. Bones/joints: Unremarkable. No acute fracture. Soft tissues: Unremarkable. Sinuses: Unremarkable as visualized. No acute sinusitis. Mastoid air cells: Unremarkable as visualized. No mastoid effusion. IMPRESSION: No evidence of acute intracranial pathology. EXAM: CT Cervical Spine Without Intravenous Contrast CLINICAL HISTORY: ITS.REASON CT Reason: fall TECHNIQUE: Axial computed tomography images of the cervical spine without intravenous contrast. CTDI is 12.1 mGy and DLP is 361.2 mGy-cm. This CT exam was performed using one or more of the following dose reduction techniques: automated exposure control, adjustment of the mA and/or kV according to patient size, and/or use of iterative reconstruction technique. COMPARISON: No relevant prior studies available. FINDINGS: Vertebrae: Unremarkable. No acute fracture. Discs/spinal canal/neural foramina: No acute findings. No spinal canal stenosis. Soft tissues: Unremarkable. IMPRESSION: No evidence of acute cervical spine pathology.
[2024-08-02] MEDS: SODIUM CHLORIDE 0.9% 1,000 ML IV SCH (01:07)
--- NOTE | 2024-08-02 01:30 | XR ---
EXAM: XR Chest, 1 View CLINICAL HISTORY: ITS.REASON XR Reason: fall TECHNIQUE: Frontal view of the chest. COMPARISON: No relevant prior studies available. FINDINGS: Lungs: Unremarkable. No consolidation. Pleural space: Unremarkable. No pneumothorax. Heart: Mild cardiomegaly. Mediastinum: Unremarkable. Normal mediastinal contour. Bones/joints: Unremarkable. No acute fracture. IMPRESSION: No acute findings in the chest.
--- NOTE | 2024-08-02 01:40 | XR ---
EXAM: XR Pelvis, 1 or 2 Views CLINICAL HISTORY: ITS.REASON XR Reason: fall TECHNIQUE: Frontal view of the pelvis. COMPARISON: No relevant prior studies available. FINDINGS: Bones/joints: Diffuse osseous demineralization. No acute fracture or subluxation. Soft tissues: Unremarkable. IMPRESSION: No acute fracture or subluxation.
[2024-08-02] MEDS ORDERED: ACETAMINOPHEN TAB 325 MG TAB PO PRN (09:46)
[2024-08-02] MEDS: CALCIUM CARB-VIT D 500 MG-5 MCG TAB PO SCH (10:39)
[2024-08-02] MEDS: carBAMazepine 200 MG TAB PO SCH (10:40)
[2024-08-02] MEDS: ARIPiprazole 10 MG TAB PO SCH (10:40)
[2024-08-02 11:08] LABS: Appearance,Urine Clear (Clear); Bilirubin,Urine Negative (Negative); Blood,Urine Trace (Negative); Color,Urine Colorless; Glucose,Urine (UA) Negative (Negative); Ketones,Urine Negative (Negative); Leukocyte Esterase,Urine Negative (Negative); Nitrite,Urine Negative (Negative); Protein,Urine Negative (Negative); Specific Gravity,Urine 1.003 (1.001-1.035); Urobilinogen,Urine <2.0 mg/dL (<2.0); WBC,Urine <1 /hpf (0-5)
[2024-08-02] MEDS: CARBIDOPA-LEVODOPA 25-100 MG 1 EACH TAB PO SCH (12:27)
--- NOTE | 2024-08-02 12:45 | P.HPIM ---
History of Present Illness H&P Date: 08/02/24 History of present illness; patient is a 74-year-old gentleman past medical history significant for dementia, hypertension, hyperlipidemia presents to ER because of a fall. Patient is currently a resident of [facility]. Patient was found lying facedown on the floor. There was no obvious trauma. There was no loss of consciousness patient was found to be confused. Nursing staff noted him to not acting his normal self. For further evaluation, patient was sent to the ER. Initial lab work done in the ER showed WBC 4, hemoglobin 10.6, platelet count 203, sodium 126, potassium 4.7, BUN 20, creatinine 0.91, glucose 112 AST 34, ALT 6, troponin 0.012 EKG done in the ER showed heart rate of 75, no ST segment elevation seen, no T- wave inversions seen. Chest x-ray done in the ER showed no acute findings on chest CT head done showed no acute intracranial process CT cervical spine done showed no evidence of any fracture Pelvic x-ray done showed no fracture Patient admitted to internal medicine service REVIEW OF SYSTEMS: Review of system cannot be obtained as patient is poor historian PHYSICAL EXAMINATION: GENERAL: The patient is alert and oriented x1-2, not in any acute distress. Well developed, well nourished. HEENT: Pupils are round and equally reacting to light. EOMI. No scleral icterus. No conjunctival pallor. Normocephalic, atraumatic. No pharyngeal erythema. No thyromegaly. CARDIOVASCULAR: S1 and S2 present. No murmurs, rubs, or gallops. PULMONARY: Chest is clear to auscultation, no wheezing or crackles. ABDOMEN: Soft, nontender, nondistended, normoactive bowel sounds. No palpable organomegaly. MUSCULOSKELETAL: No joint swelling or deformity. EXTREMITIES: No cyanosis, clubbing, or pedal edema. NEUROLOGICAL: Gross neurological examination did not reveal any focal deficits. SKIN: No rashes. Assessment and plan Fall Hyponatremia Hypertension Hyperlipidemia Dementia Parkinson disease Monitor vital signs Monitor CBC Monitor CMP Continue telemetry monitoring Fall precaution Delirium precaution Continue IV fluids Trend troponin Ordered D-dimer Resume home meds Labs and medication were reviewed.. Continue same treatment. Continue with symptomatic treatment. Resume home medication. Monitor labs and vitals. DVT and GI prophylaxis. Further recommendations as per clinical course of the patient Dictation was produced using dragon dictation software. please excuse any grammatical, word or spelling errors. Past Medical History Past Medical History: Dementia, Hypertension Additional Past Medical History / Comment(s): Bradycardia, Parkinson's Disease History of Any Multi-Drug Resistant Organisms: Unobtainable Past Surgical History: Unable to Obtain Past Anesthesia/Blood Transfusion Reactions: Unable to Obtain Past Psychological History: Bipolar, Schizophrenia Smoking Status: Unknown if ever smoked Past Alcohol Use History: Unable to Obtain Past Drug Use History: Unable to Obtain Medications and Allergies Home Medications Medication Instructions Recorded Confirmed Type Aspirin EC [Ecotrin Low Dose] 81 mg PO DAILY 02/19/24 08/02/24 History Atorvastatin [Lipitor] 40 mg PO HS 02/19/24 08/02/24 History Carbidopa-Levodopa 25-100 mg 1 tab PO TID@0700,1300,1900 02/19/24 08/02/24 History [Sinemet 25-100 mg] Donepezil [Aricept] 5 mg PO HS 02/19/24 08/02/24 History Memantine [Namenda] 10 mg PO BID 02/19/24 08/02/24 History carvediloL [Coreg] 3.125 mg PO BID 02/19/24 08/02/24 History rOPINIRole HCL [Requip] 1 mg PO TID@0700,1300,1900 02/19/24 08/02/24 History traZODone HCL [Desyrel] 50 mg PO HS 02/19/24 08/02/24 History ARIPiprazole [Abilify] 10 mg PO DAILY 08/02/24 08/02/24 History Acetaminophen [Tylenol 8 Hour] 650 mg PO Q8H PRN 08/02/24 08/02/24 History Calcium Carbonate/Vitamin D3 1 tab PO BID 08/02/24 08/02/24 History [Calcium 600-D3 20 mcg (800 Unit)] LORazepam [Ativan] 0.5 mg PO BID 08/02/24 08/02/24 History Lactulose [Constulose] 10 gm PO DAILY 08/02/24 08/02/24 History Multivitamins, Thera [Multivitamin 1 tab PO HS 08/02/24 08/02/24 History (formulary)] Pimavanserin Tartrate [Nuplazid] 34 mg PO DAILY 08/02/24 08/02/24 History Sennosides [Senokot] 17.2 mg PO HS 08/02/24 08/02/24 History carBAMazepine [TEGretol] 200 mg PO BID 08/02/24 08/02/24 History Allergies Allergy/AdvReac Type Severity Reaction Status Date / Time Penicillins Allergy Unknown Verified 08/02/24 08:21 Physical Exam Vitals: Vital Signs Temp Pulse Pulse Resp BP BP Pulse Ox 08/02/24 07:49 66 16 105/69 96 08/02/24 06:28 76 16 114/76 98 08/02/24 00:55 68 11 L 101/68 97 08/02/24 00:05 69 11 L 100/67 97 08/01/24 23:00 74 19 133/88 97 08/01/24 22:24 97.8 F 75 18 150/93 97 Intake and Output 08/01/24 08/02/24 08/02/24 22:59 06:59 14:59 Intake Total 325 Balance 325 Intake: Intake, IV Titration 325 Amount Sodium Chloride 0.9% 1, 325 000 ml @ 75 mls/hr IV . [id number] [facility] Rx#:[id number] Other: # Voids 4 Weight 77.111 kg Results CBC & Chem 7: 08/01/24 22:35 08/01/24 22:35 Labs: Abnormal Lab Results - Last 24 Hours (Table) 08/01/24 08/01/24 08/01/24 Range/Units 22:32 22:35 22:35 RBC 3.00 L (4.30-5.90) m/uL Hgb 10.6 L (13.0-17.5) gm/dL Hct 31.2 L (39.0-53.0) % MCV 104.0 H (80.0-100.0) fL MCH 35.3 H (25.0-35.0) pg Sodium 126 L (137-145) mmol/L Chloride 95 L (98-107) mmol/L Glucose 112 H (74-99) mg/dL POC Glucose (mg/dL) 124 H (70-110) mg/dL
--- NOTE | 2024-08-02 13:46 | CT ---
EXAMINATION TYPE: CT chest angio for PE DATE OF EXAM: 08/02/2024 COMPARISON: 08/01/2024 HISTORY: 74 year-old male shortness of breath, Dyspnea, r/o PE. TECHNIQUE: Contiguous axial scanning of the chest performed with IV Contrast, patient injected with 1 00 ml mL of Isovue 370. Coronal and sagittal MIP reconstructions performed. CT DLP: 260.8 mGycm Automated exposure control for dose reduction was used. FINDINGS: The heart is normal size without pericardial effusion. No flattening of the interventricular septum o r refluxing contrast into the hepatic veins. Ectatic aortic root and ascending aorta 3.6 cm. Conventional arch vessel branching anatomy. Ectatic l ower descending thoracic aorta at 2.6 cm. Prominent 1.2 cm right hilar lymph node likely reactive/post inflammatory. Otherwise, no thoracic lym phadenopathy by CT size criteria. Borderline enlarged caliber main right and left pulmonary arteries measuring up to 2.6 cm suggesting underlying pulmonary arterial hypertension. Mild breathing motion artifacts limits the evaluation. No definite pulmonary embolus. Mild diffuse bronchial wall thickening. Mild emphysematous change. Prominent stranding and dependent atelectasis along the posterior aspect of the lungs and minimal biapical pleural-parenchymal scarring . There is a tiny hiatal hernia present. Visualized upper abdomen is limited by motion artifact. Tiny h ilar splenule and mild pancreatic atrophy. Bones: Mild degenerative disc disease mid to lower thoracic spine. IMPRESSION: 1. MILD BREATHING MOTION ARTIFACTS LIMITING ASSESSMENT. NO DEFINITE PULMONARY EMBOLUS. 2. COPD WITH MILD EMPHYSEMA. Pulmonary arterial hypertension. 3. TINY HIATAL HERNIA. [facility], , 08/02/2024 1:44 PM
[2024-08-02] MEDS: carvediloL 3.125 MG TAB PO SCH (17:35)
[2024-08-02] MEDS: traZODone HCL 50 MG TAB PO SCH (20:45)
[2024-08-02] MEDS: MULTIVITAMINS, THERA 1 EACH TAB PO SCH (20:45)
[2024-08-02] MEDS: SENNOSIDES 8.6 MG TAB PO SCH (20:46)
[2024-08-02] MEDS: MEMANTINE 10 MG TAB PO SCH (20:47)
[2024-08-02] MEDS: ATORVASTATIN 40 MG TAB PO SCH (20:49)
[2024-08-02] MEDS: LORazepam 0.5 MG TAB PO SCH (20:50)
[2024-08-02] MEDS: DONEPEZIL 5 MG TAB PO SCH (21:14)
[2024-08-03 07:21] VITALS: RESP 16
[2024-08-03 08:44] LABS: Basophils # (A) 0.02 X 10*3/uL (0.00-0.10); Basophils % (A) 0.4 %; Eosinophils # (A) 0.11 X 10*3/uL (0.04-0.35); Eosinophils % (A) 1.9 %; HCT 28.8 % (39.6-50.0); HGB 10.1 g/dL (13.0-17.0); Lymphocytes # (A) 1.64 X 10*3/uL (0.90-5.00); Lymphocytes % (A) 28.9 %; MCH 35.8 pg (27.0-32.0); MCHC 35.1 g/dL (32.0-37.0); MCV 102.1 FL (80.0-97.0); Monocytes # (A) 0.76 X 10*3/uL (0.20-1.00); Monocytes % (A) 13.4 %; NRBC Per 100 WBC 0 X 10*3/uL (0.00-0.01); Neutrophils # (A) 3.13 X 10*3/uL (1.80-7.70); Platelet Count 200 X 10*3/uL (140-440); RBC 2.82 X 10*6/uL (4.40-5.60); RDW 13.2 % (11.5-14.5); WBC 5.68 X 10*3/uL (4.50-10.00)
[2024-08-03] MEDS: LACTULOSE 20 GM/30 ML CUP PO SCH (08:48)
[2024-08-03] MEDS: ASPIRIN 81 MG PO SCH (08:49)
[2024-08-03] MEDS: NON FORMULARY DRUG (Pimavanserin Tartrate [Nuplazid] 34 MG Capsule) PO SCH (08:49)
[2024-08-03 12:22] LABS: Magnesium 1.9 mg/dL (1.5-2.4); Phosphorus 3.2 mg/dL (2.4-5.1)
[2024-08-03 12:45] LABS: ALT 26 U/L (10-49); AST 34 U/L (14-35); Albumin 3.7 g/dL (3.8-4.9); Albumin/Globulin Ratio 1.68 Ratio (1.60-3.17); Alkaline Phosphatase 104 U/L (41-126); BUN/Creat Ratio 9.22 Ratio (12.00-20.00); Blood Urea Nitrogen 8.3 mg/dL (9.0-27.0); Calcium 8.9 mg/dL (8.7-10.3); Carbon Dioxide 22.1 mmol/L (21.6-31.8); Chloride 102 mmol/L (96-109); Globulin 2.2 g/dL (1.6-3.3); Glucose 96 mg/dL (70-110); Potassium 4.3 mmol/L (3.5-5.5); Sodium 136 mmol/L (135-145); Total Bilirubin 0.4 mg/dL (0.3-1.2); Total Protein 5.9 g/dL (6.2-8.2)
--- NOTE | 2024-08-03 13:26 | P.DS ---
Providers Date of admission: 08/02/24 00:44 Expected date of discharge: 08/03/24 Attending physician: Ro Ivy Primary care physician: Deisy Welch DO Hospital Course: Discharge diagnoses; Fall Hyponatremia Hypertension Hyperlipidemia Dementia Parkinson disease Hospital course; patient is a 74-year-old gentleman past medical history significant for dementia, hypertension, hyperlipidemia presents to ER because of a fall. Homero roberto is currently a resident of [facility]. Patient was found lying facedown on the floor. There was no obvious trauma. There was no loss of consciousness patient was found to be confused. Nursing staff noted him to not acting his normal self. For further evaluation, patient was sent to the ER. Initial lab work done in the ER showed WBC 4, hemoglobin 10.6, platelet count 203, sodium 126, potassium 4.7, BUN 20, creatinine 0.91, glucose 112 AST 34, ALT 6, troponin 0.012 EKG done in the ER showed heart rate of 75, no ST segment elevation seen, no T- wave inversions seen. Chest x-ray done in the ER showed no acute findings on chest CT head done showed no acute intracranial process CT cervical spine done showed no evidence of any fracture Pelvic x-ray done showed no fracture Patient admitted to internal medicine service 08/03. Patient seen and examined. Does not look in acute distress, hyponatremia resolved. CTA chest negative for any PE. Being discharged back to memory care unit PHYSICAL EXAMINATION: GENERAL: The patient is alert and oriented x1-2, not in any acute distress. Well developed, well nourished. HEENT: Pupils are round and equally reacting to light. EOMI. No scleral icterus. No conjunctival pallor. Normocephalic, atraumatic. No pharyngeal erythema. No thyromegaly. CARDIOVASCULAR: S1 and S2 present. No murmurs, rubs, or gallops. PULMONARY: Chest is clear to auscultation, no wheezing or crackles. ABDOMEN: Soft, nontender, nondistended, normoactive bowel sounds. No palpable organomegaly. MUSCULOSKELETAL: No joint swelling or deformity. EXTREMITIES: No cyanosis, clubbing, or pedal edema. NEUROLOGICAL: Gross neurological examination did not reveal any focal deficits. SKIN: No rashes. Dictation was produced using [employer] software. please excuse any grammatical, word or spelling errors. Patient Condition at Discharge: Fair Plan - Discharge Summary New Discharge Prescriptions: Continue rOPINIRole HCL [Requip] 1 mg PO TID@0700,1300,1900 Carbidopa-Levodopa 25-100 mg [Sinemet 25-100 mg] 1 tab PO TID@0700,1300,1900 carvediloL [Coreg] 3.125 mg PO BID LORazepam [Ativan] 0.5 mg PO BID Memantine [Namenda] 10 mg PO BID traZODone HCL [Desyrel] 50 mg PO HS Donepezil [Aricept] 5 mg PO HS Atorvastatin [Lipitor] 40 mg PO HS Aspirin EC [Ecotrin Low Dose] 81 mg PO DAILY carBAMazepine [TEGretol] 200 mg PO BID Calcium Carbonate/Vitamin D3 [Calcium 600-D3 20 mcg (800 Unit)] 1 tab PO BID Sennosides [Senokot] 17.2 mg PO HS Pimavanserin Tartrate [Nuplazid] 34 mg PO DAILY Multivitamins, Thera [Multivitamin (formulary)] 1 tab PO HS Lactulose [Constulose] 10 gm PO DAILY ARIPiprazole [Abilify] 10 mg PO DAILY Acetaminophen [Tylenol 8 Hour] 650 mg PO Q8H PRN PRN Reason: Pain Discharge Medication List Aspirin EC [Ecotrin Low Dose] 81 mg PO DAILY 02/19/24 [History] Atorvastatin [Lipitor] 40 mg PO HS 02/19/24 [History] Carbidopa-Levodopa 25-100 mg [Sinemet 25-100 mg] 1 tab PO TID@0700,1300,1900 02/19/24 [History] Donepezil [Aricept] 5 mg PO HS 02/19/24 [History] Memantine [Namenda] 10 mg PO BID 02/19/24 [History] carvediloL [Coreg] 3.125 mg PO BID 02/19/24 [History] rOPINIRole HCL [Requip] 1 mg PO TID@0700,1300,1900 02/19/24 [History] traZODone HCL [Desyrel] 50 mg PO HS 02/19/24 [History] ARIPiprazole [Abilify] 10 mg PO DAILY 08/02/24 [History] Acetaminophen [Tylenol 8 Hour] 650 mg PO Q8H PRN 08/02/24 [History] Calcium Carbonate/Vitamin D3 [Calcium 600-D3 20 mcg (800 Unit)] 1 tab PO BID 08/02/24 [History] LORazepam [Ativan] 0.5 mg PO BID 08/02/24 [History] Lactulose [Constulose] 10 gm PO DAILY 08/02/24 [History] Multivitamins, Thera [Multivitamin (formulary)] 1 tab PO HS 08/02/24 [History] Pimavanserin Tartrate [Nuplazid] 34 mg PO DAILY 08/02/24 [History] Sennosides [Senokot] 17.2 mg PO HS 08/02/24 [History] carBAMazepine [TEGretol] 200 mg PO BID 08/02/24 [History] Follow up Appointment(s)/Referral(s): Deisy Welch DO [Primary Care Provider] - 1-2 days Discharge Disposition: HOME SELF-CARE
[2024-08-03 14:54] VITALS: BP 154/73; PULSE 78; TEMP 98.6
== END 2024-08-03 15:35 ==
LOC: EC 22:22 → 6NMEDSUR 08-02 00:44
PROVIDERS: ADMIT Hospitalist; ATTEND Hospitalist
DX: G93.40 Encephalopathy, unspecified (principal); E87.1 Hypo-osmolality and hyponatremia; G20.A1 Parkinson's disease without dyskinesia, without mention of fluctuations; F02.80 Dementia in other diseases classified elsewhere, unspecified severity, without behavioral disturbance, psychotic disturbance, mood disturbance, and anxiety; I10 Essential (primary) hypertension; E78.5 Hyperlipidemia, unspecified; Z79.82 Long term (current) use of aspirin; Z79.899 Other long term (current) drug therapy; Z88.0 Allergy status to penicillin; Z79.01 Long term (current) use of anticoagulants; W01.0XXA Fall on same level from slipping, tripping and stumbling without subsequent striking against object, initial encounter
CPT/HCPCS: 36415; 70450; 71045; 71275; 72125; 72170; 80053; 81001; 83605; 83735; 84100; 84484; 85025; 85379; 85610; 85730; 93005; 96360; 99285

== ENCOUNTER 2024-08-10 10:45 | Emergency (ER) | payer MEDICARE, OTHER ==
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
[2024-08-10] MEDS: DIPH,PERTUS(ACELL)TETVAC-LF 0.5 ML VIAL IM ONE (12:11)
[2024-08-10 12:29] LABS: Basophils % (A) 0 %; Eosinophils % (A) 0 %; HCT 30.4 % (39.0-53.0); HGB 10.2 gm/dL (13.0-17.5); Lymphocytes # (A) 0.7 k/uL (1.0-4.8); Lymphocytes % (A) 14 %; MCHC 33.5 g/dL (31.0-37.0); MCV 107.5 fL (80.0-100.0); Macrocytosis Moderate; Mean Platelet Volume 7.5; Monocytes # (A) 0.3 k/uL (0-1.0); Monocytes % (A) 5 %; Neutrophils # (A) 4.3 k/uL (1.3-7.7); Neutrophils % (A) 80 %; Platelet Count 274 k/uL (150-450); RBC 2.83 m/uL (4.30-5.90); RDW 14.3 % (11.5-15.5); WBC 5.4 k/uL (3.8-10.6)
[2024-08-10 12:31] LABS: ALT 47 U/L (4-49); AST 33 U/L (17-59); African American GFR (CKD) 73 (>60 ml/min/1.73 sqM); Albumin 3.4 g/dL (3.5-5.0); Alcohol <10 mg/dL; Alkaline Phosphatase 85 U/L (38-126); Anion Gap 3 mmol/L; Blood Urea Nitrogen 19 mg/dL (9-20); Calcium 8.8 mg/dL (8.4-10.2); Carbon Dioxide 30 mmol/L (22-30); Chloride 105 mmol/L (98-107); Glucose 114 mg/dL (74-99); Non-African American GFR(CKD) 63 (>60 ml/min/1.73 sqM); Potassium 4.3 mmol/L (3.5-5.1); Sodium 138 mmol/L (137-145); Total Bilirubin 0.5 mg/dL (0.2-1.3); Total Protein 5.9 g/dL (6.3-8.2)
[2024-08-10 14:45] LABS: Amphetamine Screen,Urine Not Detected (NotDetected); Barbiturate Screen,Urine Not Detected (NotDetected); Benzodiazepines Screen,Urine Detected (NotDetected); Cocaine Screen,Urine Not Detected (NotDetected); Methadone Screen, Urine Not Detected (NotDetected); Opiate Screen,Urine Not Detected (NotDetected); Oxycodone Screen, Urine Not Detected (NotDetected); Phencyclidine Screen,Urine Not Detected (NotDetected); Tricyclic Antidepressant,Urine Not Detected (NotDetected); Urn Cannabinoid Scrn Not Detected (NotDetected)
[2024-08-10 18:36] LABS: Appearance,Urine Clear (Clear); Bilirubin,Urine Negative (Negative); Blood,Urine Negative (Negative); Color,Urine Colorless; Glucose,Urine (UA) Negative (Negative); Ketones,Urine Trace (Negative); Leukocyte Esterase,Urine Negative (Negative); Nitrite,Urine Negative (Negative); Protein,Urine Negative (Negative); Specific Gravity,Urine 1.015 (1.001-1.035); Urobilinogen,Urine <2.0 mg/dL (<2.0)
[2024-08-11] MEDS: LORazepam 2 MG/ML INJ IM STA (03:18)
[2024-08-11] MEDS: ACETAMINOPHEN TAB 325 MG TAB PO STA (07:21)
[2024-08-11] MEDS ORDERED: haloperidoL 1 MG TAB PO PRN (13:43)
[2024-08-11] MEDS: MEMANTINE 10 MG TAB PO SCH (17:51)
[2024-08-11] MEDS: CARBIDOPA-LEVODOPA 25-100 MG 1 EACH TAB PO SCH (17:51)
[2024-08-11] MEDS: ASPIRIN 81 MG PO SCH (17:51)
[2024-08-11] MEDS: ARIPiprazole 15 MG TAB PO SCH (17:51)
[2024-08-11] MEDS: carBAMazepine 200 MG TAB PO SCH (17:51)
[2024-08-11] MEDS: carvediloL 3.125 MG TAB PO SCH (17:52)
[2024-08-11] MEDS: traZODone HCL 50 MG TAB PO SCH (21:18)
[2024-08-11] MEDS: ATORVASTATIN 40 MG TAB PO SCH (21:18)
[2024-08-11] MEDS: DONEPEZIL 5 MG TAB PO SCH (21:18)
[2024-08-11] MEDS: ZIPRASIDONE 20 MG VIAL IM STA (21:21)
[2024-08-12] MEDS: ZIPRASIDONE 20 MG VIAL IM STA (01:04)
[2024-08-12] MEDS: METOPROLOL TARTRATE 5 MG/5 ML VIAL IVP STA (17:58)
[2024-08-13] MEDS: ZIPRASIDONE 20 MG VIAL IM STA (08:42)
[2024-08-13 09:17] LABS: Glucose,Whole Blood 106 mg/dL (70-110)
[2024-08-13] MEDS: SODIUM CHLORIDE 0.9% 1,000 ML IV STA (09:18)
[2024-08-13 09:36] LABS: African American GFR (CKD) 82 (>60 ml/min/1.73 sqM); Anion Gap 12 mmol/L; Blood Urea Nitrogen 19 mg/dL (9-20); Calcium 9.3 mg/dL (8.4-10.2); Carbon Dioxide 22 mmol/L (22-30); Chloride 107 mmol/L (98-107); Glucose 107 mg/dL (74-99); Non-African American GFR(CKD) 71 (>60 ml/min/1.73 sqM); Potassium 4.6 mmol/L (3.5-5.1); Sodium 141 mmol/L (137-145)
[2024-08-13 09:54] LABS: Basophils % (A) 0 %; Eosinophils % (A) 0 %; HCT 36.3 % (39.0-53.0); HGB 11.8 gm/dL (13.0-17.5); Lymphocytes # (A) 1.3 k/uL (1.0-4.8); Lymphocytes % (A) 17 %; MCH 35.2 pg (25.0-35.0); MCHC 32.3 g/dL (31.0-37.0); MCV 108.9 fL (80.0-100.0); Macrocytosis Marked; Mean Platelet Volume 7.1; Monocytes # (A) 0.4 k/uL (0-1.0); Monocytes % (A) 6 %; Neutrophils # (A) 5.6 k/uL (1.3-7.7); Neutrophils % (A) 75 %; Platelet Count 316 k/uL (150-450); RBC 3.34 m/uL (4.30-5.90); RDW 13.6 % (11.5-15.5); WBC 7.5 k/uL (3.8-10.6)
[2024-08-13 11:01] LABS: Polychromasia Present
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
--- NOTE | 2024-08-14 10:50 | P.CN ---
Psychiatric Consult - . Consult:: IDENTIFYING DATA: Patient is a 74-year-old male who lives in [facility]. Admitted for encephalopathy and psych is consulted for psychosis HPI: it is difficult to understand patient during interview as he is mumbling, sometimes in Burundian. A majority of the history was obtained from the chart and with conversation with the [facility] staff Patient became gradually decompensating over the past month as he refused his medications as well as eating and drinking. He has had bizarre behavior, violent outbursts, sexually inappropriate behavior. He speaks about the devil and God making him do things. He has also been responding to internal stimuli. He made gestures of slitting his throat and at 1 point stabbed himself with a fork. He has needed IM Ativan for these behaviors at [facility]. During this time, he has also had pressured speech, little sleep, and increased energy/activity. A similar episode occured one year ago after which he was admitted to a psych unit for about a few weeks. Has been refusing some meds while in the ER. Placement for him in a geripsych unit has been unsuccessful thus far, so will attempt to treat while he is in the ER. PAST PSYCHIATRIC HISTORY: Patient has a a history of schizoaffective disorder: bipolar type, Parkinson's disease. Admitted last year with similar presentation. Has been on Abilify 15 mg daily and tegretol 200 mg bid for a long time. Also on donepezil, memantine, sinemet PAST MEDICAL HISTORY: As per ER note ALLERGIES: as per EMR. CHEMICAL DEPENDENCY HISTORY: none FAMILY PSYCHIATRIC/SUBSTANCE USE HISTORY: deferred SOCIAL HISTORY: Currently residing at [facility] MENTAL STATUS EXAM: General Appearance: Patient appears to be thin, elderly, stated age is alert, pleasant, attempts to cooperate. Malodorous, poor hygiene and grooming Behavior: Cooperative Speech: pressured speech, mumbling, difficult to understand Mood/Affect: constricted affecty Suicidality/Homicidality: unable to obtain as patient is mumbling and difficult to understand Perceptions: not responding Though content/process: unable to obtain as patient is mumbling and difficult to understand Memory and concentration: unable to obtain as patient is mumbling and difficult to understand Judgment and insight: Chronically limited/poor IMPRESSIONS: Schizoaffective disorder: bipolar type, appears to be an acute decompensation 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 -Delirium precautions recommended with patient including - avoiding use of narc otics and ORDER TO DELIVERY SUPERVISOR sedatives, limit anticholinergic medications when possible, frequent re-orientation, minimize use of restraints, open window shades during the day and close them at night -Would recommend the following medication changes/additions: Increase Abilify to 20 mg daily and consider HAQUE due to history of noncompliance or switching to seroquel as seroquel works better with patients with Parkinsons. Please try to avoid benzodiazepines and anticholinergic medications. Continue with Tegretol 200 mg bid, Sinemet, Namenda, and Aricept as prescribed. Zyprexa 5 mg IM and PO prn for agitation -[facility] room worker to provide patient with outpatient mental health/psychiatry resources for appropriate follow up upon discharge -Will continue to follow tomorrow -Please contact with any questions. 08/14/24 10:50
--- NOTE | 2024-08-14 12:56 | P.PN ---
Subjective Progress Note Date: 08/14/24 Subjective: Patient seen and examined at bedside. No acute events overnight. Did take his medications this morning. Pertinent positives and negatives as discussed above, a complete review of systems was performed and all other systems are negative. Vitals Signs Reviewed. GENERAL: Confused, mumbling with strong odor present. The patient is alert and oriented x 0, not in any acute distress. Well developed, well nourished. HEENT: Pupils are round and equally reacting to light. EOMI. No scleral icterus. No conjunctival pallor. Normocephalic, atraumatic. No pharyngeal erythema. No th yromegaly. CARDIOVASCULAR: S1 and S2 present. No murmurs, rubs, or gallops. PULMONARY: Chest is clear to auscultation, no wheezing or crackles. ABDOMEN: Soft, nontender, nondistended, normoactive bowel sounds. No palpable organomegaly. MUSCULOSKELETAL: No apparent nodular thickening of joints. No apparent joint swelling and deformities. EXTREMITIES: No apparent cyanosis, clubbing, or pedal edema. NEUROLOGICAL: Gross neurological examination did not reveal any focal deficits. SKIN: Facial dermatitis Data Reviewed Today: Pertinent Labs: TSH 0.89 Imaging: No new imaging Assessment and Plan: # worsening dementia Psychiatry note reviewed, increased Abilify to 20 mg daily, also started on Zyprexa as needed for agitation -Continue carbamazepine 200 twice daily, Sinemet 25-100 3 times daily, donepezil 5 nightly, memantine 10 twice daily, ropinirole 1 3 times daily Continue to monitor -Delirium precautions #Macrocytic anemia Hemoglobin 11.8 and MCV 108.9 TSH within normal limits, folic acid B12 pending Monitor CBC Abilify usage Chronic Medical Conditions # Essential hypertension - continue with home Coreg 3.125 #Hyperlidemia - Continue home Atorvastatin 40 mg # Dementia - Continue home medication as above #Parkinson's disease Continue home medication as above #Seizures Continue home medication Thank you for allowing us to participate in the care of this pleasant patient. Do not hesitate to contact us with questions. Someone can be reached from the [facility] hospitalist group all hours of the day at [phone] or via perfect serve. Objective - Vital Signs Vital signs: Vital Signs Temp 97.5 F L 08/14/24 05:46 Pulse 92 08/14/24 08:15 Resp 18 08/14/24 08:15 BP 138/56 08/14/24 08:15 Pulse Ox 96 08/14/24 08:15 FiO2 Intake & Output 08/13/24 08/14/24 08/14/24 18:59 06:59 18:59 Weight 58 kg - Labs CBC & Chem 7: 08/13/24 09:15 08/13/24 09:15
--- NOTE | 2024-08-15 11:45 | P.PN ---
Subjective Progress Note Date: 08/15/24 Patient seen and examined at bedside. No acute events overnight, took medication. He has been cooperative in taking medication and eating. He was speaking but continued to be incomprehensible. Awaiting placement back with [facility] once psych medication has been optimized. Pertinent positives and negatives as discussed above, a complete review of systems was performed and all other systems are negative. Vitals Signs Reviewed. GENERAL: Confused, mumbling with strong odor present. The patient is alert and oriented x 0, not in any acute distress. Well developed, well nourished. HEENT: Pupils are round and equally reacting to light. EOMI. No scleral icterus. No conjunctival pallor. Normocephalic, atraumatic. No pharyngeal erythema. No thyromegaly. CARDIOVASCULAR: S1 and S2 present. No murmurs, rubs, or gallops. PULMONARY: Chest is clear to auscultation, no wheezing or crackles. ABDOMEN: Soft, nontender, nondistended, normoactive bowel sounds. No palpable organomegaly. MUSCULOSKELETAL: No apparent nodular thickening of joints. No apparent joint swelling and deformities. EXTREMITIES: No apparent cyanosis, clubbing, or pedal edema. NEUROLOGICAL: Gross neurological examination did not reveal any focal deficits. SKIN: Facial dermatitis Data Reviewed Today: Pertinent Labs: Vitamin B12 454, Folate 16.8 Imaging: No new imaging Assessment and Plan: # worsening dementia Psychiatry following, increased Abilify to 20 mg daily, also started on Zyprexa as needed for agitation -Continue carbamazepine 200 twice daily, Sinemet 25-100 3 times daily, donepezil 5 nightly, memantine 10 twice daily, ropinirole 1 3 times daily Continue to monitor -Delirium precautions -Discussed management with psychiatry, will likely need further assessment tomorrow #Macrocytic anemia Hemoglobin 11.8 and MCV 108.9 TSH within normal limits, folic acid and B12 are WNL Monitor CBC Abilify usage Chronic Medical Conditions # Essential hypertension - continue with home Coreg 3.125 #Hyperlidemia - Continue home Atorvastatin 40 mg # Dementia - Continue home medication as above #Parkinson's disease Continue home medication as above #Seizures Continue home medication Thank you for allowing us to participate in the care of this pleasant patient. Do not hesitate to contact us with questions. Someone can be reached from the [facility] hospitalist group all hours of the day at [phone] or via perfect serve. I have seen and evaluated the patient today. Discussed with the resident and agree with the residents finding and plan as documented in the resident's note. Changes highlighted in blue font. Objective - Vital Signs Vital signs: Vital Signs Temp 98.3 F 08/14/24 17:03 Pulse 78 08/15/24 07:12 Resp 20 08/15/24 07:12 BP 102/62 08/15/24 07:12 Pulse Ox 95 08/15/24 07:12 FiO2 - Labs CBC & Chem 7: 08/13/24 09:15 08/13/24 09:15
[2024-08-15] MEDS: OLANZapine 5 MG TAB PO PRN (13:28)
--- NOTE | 2024-08-16 12:07 | P.PN ---
Subjective Progress Note Date: 08/16/24 Patient seen and examined at bedside. No acute events overnight, slept well through the night. He has been cooperative in taking medication and eating. He was speaking but continued to be incomprehensible. Pertinent positives and negatives as discussed above, a complete review of systems was performed and all other systems are negative. Vitals Signs Reviewed. GENERAL: Confused, mumbling with strong odor present. The patient is alert and oriented x 0, not in any acute distress. Well developed, well nourished. HEENT: Pupils are round and equally reacting to light. EOMI. No scleral icterus. No conjunctival pallor. Normocephalic, atraumatic. No pharyngeal erythema. No thyromegaly. CARDIOVASCULAR: S1 and S2 present. No murmurs, rubs, or gallops. PULMONARY: Chest is clear to auscultation, no wheezing or crackles. ABDOMEN: Soft, nontender, nondistended, normoactive bowel sounds. No palpable organomegaly. MUSCULOSKELETAL: No apparent nodular thickening of joints. No apparent joint swelling and deformities. EXTREMITIES: No apparent cyanosis, clubbing, or pedal edema. NEUROLOGICAL: Gross neurological examination did not reveal any focal deficits. SKIN: Facial dermatitis Data Reviewed Today: Pertinent Labs: No new labs Imaging: No new imaging Assessment and Plan: # worsening dementia -Psychiatry note reviewed, decrease Abilify to 15 mg daily, Seroquel 25 twice daily added, also on Zyprexa as needed for agitation -Continue carbamazepine 200 twice daily, Sinemet 25-100 3 times daily, donepezil 5 nightly, memantine 10 twice daily, ropinirole 1 3 times daily Continue to monitor -Delirium precautions -Per psychiatry patient does not meet criteria for inpatient psychiatric admission, needs to go to [facility] psych unit. #Macrocytic anemia Hemoglobin 11.8 and MCV 108.9 TSH within normal limits, folic acid and B12 are WNL Monitor CBC Abilify usage Chronic Medical Conditions # Essential hypertension - continue with home Coreg 3.125 #Hyperlidemia - Continue home Atorvastatin 40 mg # Dementia - Continue home medication as above #Parkinson's disease Continue home medication as above #Seizures Continue home medication Dispo: [facility] psych placement Thank you for allowing us to participate in the care of this pleasant patient. Do not hesitate to contact us with questions. Someone can be reached from the [facility] hospitalist group all hours of the day at [phone] or via perfect serve. I have seen and evaluated the patient today. Discussed with the resident and agree with the residents finding and plan as documented in the resident's note. Changes highlighted in blue font. Objective - Vital Signs Vital signs: Vital Signs Temp 98.3 F 08/14/24 17:03 Pulse 62 08/16/24 11:30 Resp 22 08/16/24 11:30 BP 112/78 08/16/24 11:30 Pulse Ox 98 08/16/24 11:30 FiO2 - Labs CBC & Chem 7: 08/13/24 09:15 08/13/24 09:15
--- NOTE | 2024-08-16 13:29 | P.PN ---
Progress Note - Text Progress Note Date: 08/16/24 Interval history: Patient was seen today for psychiatric follow-up. Patient was seen today and was loud, agitated, attempting to take off his gown today. He was mumbling at times incoherently in both Mauritanian and Turkmen at times. He was attempted to be fed by a nurses aide however was fairly uncooperative. Cloth Doubling Machine Operator attempted to speak to patient at the bedside, he had poor attention span, he knew his name, did not know where he was or today's date. He does not know his current situation. He banged repeatedly on the side of the bed however was difficult to comprehend. He denied any auditory hallucinations or visual hallucinations, unclear response when asked about suicidal or homicidal thoughts. MENTAL STATUS EXAM: General Appearance: Patient appears to be thin, elderly, stated age is alert, agitated, uncooperative, poor hygiene and grooming Behavior: Uncooperative, difficult to redirect, somewhat agitated Speech: pressured speech, mumbling, difficult to understand Mood/Affect: Labile Suicidality/Homicidality: unable to obtain as patient is mumbling and difficult to understand Perceptions: Not endorsing any auditory or visual hallucinations. Though content/process: unable to obtain as patient is mumbling and difficult to understand, illogical, concrete. Memory and concentration: Unable to obtain. 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 -Patient DOES NOT have decision making capacity at this time and is unable to reason through and communicate/appreciate the risks, benefits and alternatives to treatment. -Delirium precautions recommended with patient including - avoiding use of narcotics and CLINICAL SPECIALIST MEDICAL DEVICE sedatives, limit anticholinergic medications when possible, frequent re-orientation, minimize use of restraints, open window shades during the day and close them at night -Would recommend the following medication changes/additions: Decrease Abilify to 15 mg daily for mood stabilization/psychosis. Added Seroquel 25 mg twice daily for mood stabilization/psychosis. Please try to avoid benzodiazepines and anticholinergic medications as this will likely further make patient's mental status worse and possible lead to a fall. Continue with Tegretol 200 mg bid, Sinemet, Namenda, and Aricept as prescribed. Zyprexa 5 mg IM and PO prn for agitation -Will continue to follow along -Please contact with any questions.
[2024-08-16] MEDS: QUEtiapine 25 MG TAB PO SCH (20:12)
[2024-08-16] MEDS: ARIPiprazole 15 MG TAB PO SCH (20:19)
--- NOTE | 2024-08-17 11:50 | P.PN ---
Subjective Progress Note Date: 08/17/24 Patient seen and examined at bedside. No acute events overnight, slept well through the night. He has been somewhat cooperative in taking medication and eating. He was speaking but continued to be incomprehensible. Pertinent positives and negatives as discussed above, a complete review of syst ems was performed and all other systems are negative. Vitals Signs Reviewed. GENERAL: Confused, mumbling with strong odor present. Not in any acute distress. Well developed, well nourished. HEENT: Pupils are round and equally reacting to light. EOMI. No scleral icterus. No conjunctival pallor. Normocephalic, atraumatic. No pharyngeal erythema. No thyromegaly. CARDIOVASCULAR: S1 and S2 present. No murmurs, rubs, or gallops. PULMONARY: Chest is clear to auscultation, no wheezing or crackles. ABDOMEN: Soft, nontender, nondistended, normoactive bowel sounds. No palpable organomegaly. MUSCULOSKELETAL: No apparent nodular thickening of joints. No apparent joint swelling and deformities. EXTREMITIES: No apparent cyanosis, clubbing, or pedal edema. NEUROLOGICAL: Gross neurological examination did not reveal any focal deficits. SKIN: Facial dermatitis Data Reviewed Today: Pertinent Labs: No new labs Imaging: No new imaging Assessment and Plan: # worsening dementia -Psychiatry note reviewed, Abilify to 15 mg daily, Seroquel increased to 50 twice daily, also on Zyprexa as needed for agitation -Continue carbamazepine 200 twice daily, Sinemet 25-100 3 times daily, donepezil 5 nightly, memantine 10 twice daily, ropinirole 1 3 times daily Continue to monitor -Delirium precautions -Per psychiatry patient does not meet criteria for inpatient psychiatric ad mission, needs to go to [facility] psych unit. #Macrocytic anemia Hemoglobin 11.8 and MCV 108.9 TSH within normal limits, folic acid and B12 are WNL Monitor CBC Abilify usage Chronic Medical Conditions # Essential hypertension - continue with home Coreg 3.125 #Hyperlidemia - Continue home Atorvastatin 40 mg # Dementia - Continue home medication as above #Parkinson's disease Continue home medication as above #Seizures Continue home medication as above Dispo: [facility] psych placement Thank you for allowing us to participate in the care of this pleasant patient. Do not hesitate to contact us with questions. Someone can be reached from the [facility] hospitalist group all hours of the day at [phone] or via perfect serve. I have seen and evaluated the patient today. Discussed with the resident and agree with the residents finding and plan as documented in the resident's note. Changes highlighted in blue font. Objective - Vital Signs Vital signs: Vital Signs Temp 98.3 F 08/14/24 17:03 Pulse 78 08/16/24 22:08 Resp 20 08/16/24 22:08 BP 145/96 08/16/24 22:08 Pulse Ox 95 08/16/24 22:08 FiO2 - Labs CBC & Chem 7: 08/13/24 09:15 08/13/24 09:15
--- NOTE | 2024-08-17 13:47 | P.PN ---
Progress Note - Text Progress Note Date: 08/17/24 Interval history: Patient was seen today for psychiatric follow-up. Patient was seen today and was loud, agitated, had several clothing items and other things thrown on the ground. Patient continues to be fairly aggressive at times apparently the sitter is hair. Nurse claims that he was fairly agitated earlier received Zyprexa as needed and helped him calm down for an hour or 2 and then patient began being more agitated. Customer Marketing Manager attempted to speak to patient once again. He was mumbling at times incoherently in both Macedonian and Upper Sorbian at times. Customer Marketing Manager attempted to speak to patient at the bedside, he had poor attention span, he knew his name, did not know where he was or today's date. He banged repeatedly on the side of the bed once again today. difficult to comprehend. He denied any auditory hallucinations or visual hallucinations, unclear response when asked about suicidal or homicidal thoughts. MENTAL STATUS EXAM: General Appearance: Patient appears to be thin, elderly, stated age is alert, agitated, uncooperative, poor hygiene and grooming Behavior: Uncooperative, difficult to redirect, somewhat agitated Speech: pressured speech, mumbling, difficult to understand Mood/Affect: Labile Suicidality/Homicidality: unable to obtain as patient is mumbling and difficult to understand Perceptions: Not endorsing any auditory or visual hallucinations. Though content/process: unable to obtain as patient is mumbling and difficult to understand, illogical, concrete. Memory and concentration: Unable to obtain. 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 -Patient DOES NOT have decision making capacity at this time and is unable to reason through and communicate/appreciate the risks, benefits and alternatives to treatment. -Delirium precautions recommended with patient including - avoiding use of narcotics and DIP PAINTER sedatives, limit anticholinergic medications when possible, frequent re-orientation, minimize use of restraints, open window shades during the day and close them at night -Would recommend the following medication changes/additions: Abilify 15 mg daily for mood stabilization/psychosis. Increase Seroquel 50 mg twice daily for mood stabilization/psychosis. Please try to avoid benzodiazepines and anticholinergic medications as this will likely further make patient's mental status worse and possible lead to a fall. Continue with Tegretol 200 mg bid, Sinemet, Namenda, and Aricept as prescribed. Zyprexa 5 mg IM and PO prn for agitation -Will continue to follow along -Please contact with any questions.
[2024-08-17] MEDS: OLANZapine 10 MG VIAL IM PRN (14:19)
[2024-08-17] MEDS: HALOPERIDOL LACTATE 5 MG/ML 1 ML VIAL IVP STA (16:34)
[2024-08-18] MEDS: QUEtiapine 50 MG TAB PO SCH (02:20)
[2024-08-18] MEDS: QUEtiapine 50 MG TAB PO STA (02:22)
[2024-08-18] MEDS: HALOPERIDOL LACTATE 5 MG/ML 1 ML VIAL IVP STA (08:46)
--- NOTE | 2024-08-18 12:51 | P.PN ---
Subjective Progress Note Date: 08/18/24 Patient seen and examined at bedside. Patient continues to remain agitated, throwing objects at nursing staff. Symptoms not controlled with as needed Zyprexa, did receive IV Haldol with appropriate response. Pertinent positives and negatives as discussed above, a complete review of systems was performed and all other systems are negative. Vitals Signs Reviewed. GENERAL: Sleeping, not in any acute distress. Well developed, well nourished. HEENT: Pupils are round and equally reacting to light. EOMI. No scleral icterus. No conjunctival pallor. Normocephalic, atraumatic. No pharyngeal erythema. No thyromegaly. CARDIOVASCULAR: S1 and S2 present. No murmurs, rubs, or gallops. PULMONARY: Chest is clear to auscultation, no wheezing or crackles. ABDOMEN: Soft, nontender, nondistended, normoactive bowel sounds. No palpable organomegaly. MUSCULOSKELETAL: No apparent nodular thickening of joints. No apparent joint swelling and deformities. EXTREMITIES: No apparent cyanosis, clubbing, or pedal edema. NEUROLOGICAL: Gross neurological examination did not reveal any focal deficits. SKIN: Facial dermatitis Data Reviewed Today: Pertinent Labs: No new labs Imaging: No new imaging Assessment and Plan: # worsening dementia with hallucinations -Psychiatry following Abilify to 15 mg daily, Seroquel increased to 50 twice daily, also on Zyprexa as needed for agitation -Continue carbamazepine 200 twice daily, Sinemet 25-100 3 times daily, donepezil 5 nightly, memantine 10 twice daily, ropinirole 1 3 times daily Continue to monitor -Delirium precautions -Per psychiatry patient does meet criteria for inpatient psychiatric admission, needs to go to [facility] psych unit. -IV Haldol 20 mg IV 2 mg was given this morning for acute agitation despite getting Zyprexa -Patient did not receive some of his chronic home medications today Consider repeating an EKG when patient is more calm. QTc at the time of admission was 443. #Macrocytic anemia Hemoglobin 11.8 and MCV 108.9 TSH within normal limits, folic acid and B12 are WNL Monitor CBC Abilify usage Chronic Medical Conditions # Essential hypertension - continue with home Coreg 3.125 #Hyperlidemia - Continue home Atorvastatin 40 mg # Dementia - Continue home medication as above #Parkinson's disease Continue home medication as above #Seizures Continue home medication as above Dispo: [facility] psych placement Thank you for allowing us to participate in the care of this pleasant patient. Do not hesitate to contact us with questions. Someone can be reached from the [facility] hospitalist group all hours of the day at [phone] or via perfect serve. Objective - Vital Signs Vital signs: Vital Signs Temp 98.3 F 08/14/24 17:03 Pulse 89 08/18/24 12:49 Resp 18 08/18/24 12:49 BP 104/57 08/18/24 12:49 Pulse Ox 96 08/18/24 12:49 FiO2 - Labs CBC & Chem 7: 08/13/24 09:15 08/13/24 09:15
--- NOTE | 2024-08-18 13:46 | P.PN ---
Progress Note - Text Progress Note Date: 08/18/24 Interval history: Patient was seen today for psychiatric follow-up. Patient received several as needed medications this morning and last night including haloperidol and also Zyprexa. According to patient's nurse he continues to be fairly agitated, aggressive at times and throwing things. Patient just received a dose of Zyprexa earlier and was fast asleep when junior underwriter came to evaluate patient. Patient has been refusing medications this morning did not take any of his meds. MENTAL STATUS EXAM: General Appearance: Patient appears to be thin, elderly, stated age is sleeping poor hygiene and grooming Behavior: Sleeping Speech: Patient is sleeping Mood/Affect: Unable to obtain Suicidality/Homicidality: Unable to obtain Perceptions: Unable to obtain Though content/process: Unable to obtain Memory and concentration: Unable to obtain. 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 -Patient DOES NOT have decision making capacity at this time and is unable to reason through and communicate/appreciate the risks, benefits and alternatives to treatment. -Delirium precautions recommended with patient including - avoiding use of narcotics and SHAKE LOADER sedatives, limit anticholinergic medications when possible, frequent re-orientation, minimize use of restraints, open window shades during the day and close them at night -Would recommend the following medication changes/additions: increase Abilify 20 mg daily for mood stabilization/psychosis. Seroquel 50 mg twice daily for mood stabilization/psychosis. Please try to avoid benzodiazepines and anticholinergic medications as this will likely further make patient's mental status worse and possible lead to a fall. Continue with Tegretol 200 mg bid, Sinemet, Namenda, and Aricept as prescribed. increase Zyprexa 7.5 mg IM and PO prn for agitation -Will continue to follow along -Please contact with any questions.
[2024-08-19] MEDS: OLANZapine 10 MG VIAL IM PRN (14:10)
--- NOTE | 2024-08-19 14:55 | P.PN ---
Progress Note - Text Progress Note Date: 08/19/24 Interval history: Patient was seen today for psychiatric follow-up. According to patient's nurse, patient did not take any of his medications this morning. He did not receive any IM prns either today. Nurse claims the patient continues to be fairly aggressive agitated and throwing things. Patient was seen today laying in bed rambling incoherently in both [place] and [place]. Costume Designer attempted to speak with patient however patient only answered 1 or 2 questions. He knew his name. He was not oriented to anything else. He was not able to answer about suicidal homicidal ideations or auditory visual hallucinations. He was thrashing at the bedside, very impulsive. MENTAL STATUS EXAM: General Appearance: Patient appears to be thin, elderly, stated age is alert, agitated, hygiene and grooming poor Behavior: Alert, agitated, poor impulse control Speech: Rambling in [place] Irish and [place], mostly incoherent Mood/Affect: Unable to obtain Suicidality/Homicidality: Unable to obtain Perceptions: Unable to obtain Though content/process: Illogical, rambling, disorganized Memory and concentration: Unable to obtain. 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 will continue following along daily and adjusting medications as needed -Patient DOES NOT have decision making capacity at this time and is unable to reason through and communicate/appreciate the risks, benefits and alternatives to treatment. -Delirium precautions recommended with patient including - avoiding use of narcotics and SWIMMING POOL PLASTERER HELPER sedatives, limit anticholinergic medications when possible, frequent re-orientation, minimize use of restraints, open window shades during the day and close them at night -Would recommend the following medication changes/additions: Abilify 20 mg daily for mood stabilization/psychosis. Seroquel 50 mg twice daily for mood stabilization/psychosis. Please try to avoid benzodiazepines and anticholinergic medications as this will likely further make patient's mental status worse and possible lead to a fall. will d/c Tegretol as patient has no documented serizure hx. will consider depakote sprinkles for mood stabilization. continue with Sinemet, Namenda, and Aricept as prescribed. Zyprexa 7.5 mg IM and PO prn for agitation -as patient is not being accepted into a [facility] will go ahead with involuntary psych filing as patient is not taking his medications and is aggressive/impuslive, danger to himself and/or others. Petition will be completed today by EPS nurse and primary hospitalist will complete first cert. publicity writer will complete second cert within 24 hrs and will file with courts. -Will continue to follow along -Please contact with any questions.
--- NOTE | 2024-08-19 15:49 | P.PN ---
Subjective Progress Note Date: 08/19/24 Patient seen and examined at bedside. Patient continues to remain agitated. Pertinent positives and negatives as discussed above, a complete review of systems was performed and all other systems are negative. Vitals Signs Reviewed. GENERAL: Sleeping, not in any acute distress. Well developed, well nourished. HEENT: Pupils are round and equally reacting to light. EOMI. No scleral icterus. No conjunctival pallor. Normocephalic, atraumatic. No pharyngeal erythema. No thyromegaly. CARDIOVASCULAR: S1 and S2 present. No murmurs, rubs, or gallops. PULMONARY: Chest is clear to auscultation, no wheezing or crackles. ABDOMEN: Soft, nontender, nondistended, normoactive bowel sounds. No palpable organomegaly. MUSCULOSKELETAL: No apparent nodular thickening of joints. No apparent joint swelling and deformities. EXTREMITIES: No apparent cyanosis, clubbing, or pedal edema. NEUROLOGICAL: Gross neurological examination did not reveal any focal deficits. SKIN: Facial dermatitis Data Reviewed Today: Pertinent Labs: No new labs Imaging: No new imaging Assessment and Plan: # worsening dementia with hallucinations -Psychiatry following Abilify to 15 mg daily, Seroquel increased to 50 twice d aily, also on Zyprexa as needed for agitation -Continue carbamazepine 200 twice daily, Sinemet 25-100 3 times daily, donepezil 5 nightly, memantine 10 twice daily, ropinirole 1 3 times daily Continue to monitor -Delirium precautions -Per psychiatry patient does meet criteria for inpatient psychiatric admission, needs to go to [facility]. -IV Haldol 20 mg IV 2 mg was given this morning for acute agitation despite getting Zyprexa -Patient did not receive some of his chronic home medications today -Consider repeating an EKG when patient is more calm. QTc at the time of admission was 443. #Macrocytic anemia Hemoglobin 11.8 and MCV 108.9 TSH within normal limits, folic acid and B12 are WNL Monitor CBC Abilify usage Chronic Medical Conditions # Essential hypertension - continue with home Coreg 3.125 #Hyperlidemia - Continue home Atorvastatin 40 mg # Dementia - Continue home medication as above #Parkinson's disease Continue home medication as above #Seizures Continue home medication as above Dispo: [facility] placement Thank you for allowing us to participate in the care of this pleasant patient. Do not hesitate to contact us with questions. Someone can be reached from the [facility] hospitalist group all hours of the day at [phone] or via perfect serve. Objective - Vital Signs Vital signs: Vital Signs Temp 97.8 F 08/19/24 06:43 Pulse 106 H 08/19/24 06:43 Resp 18 08/19/24 06:43 BP 127/79 08/19/24 06:43 Pulse Ox 97 08/19/24 06:43 FiO2 - Labs CBC & Chem 7: 08/13/24 09:15 08/13/24 09:15
[2024-08-19] MEDS: traZODone HCL 50 MG TAB PO PRN (22:50)
--- NOTE | 2024-08-20 12:17 | P.PN ---
Progress Note - Text Progress Note Date: 08/20/24 Interval history: Patient was seen today for psychiatric follow-up. According to patient's nurse, patient has been sleeping since the morning shift. Patient did receive IM Zyprexa just after midnight last night. Patient was mainly lethargic today, was able to answer a few questions with hand sign writer, continues to be fairly disorganized illogical. There is continued complaints that patient has been impulsive and agitated at times. He refused his morning medications. MENTAL STATUS EXAM: General Appearance: Patient appears to be thin, elderly, stated age is mainly sedated today. Behavior: Mainly sedated today. Speech: Rambling in Serbian and Haitian, mostly incoherent, more concrete today Mood/Affect: Unable to obtain Suicidality/Homicidality: Denies Perceptions: Unable to obtain, responding to internal stimuli Though content/process: Illogical, rambling, disorganized. [place] Memory and concentration: Unable to obtain. 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 will continue following along daily and adjusting medications as needed -Patient DOES NOT have decision making capacity at this time and is unable to reason through and communicate/appreciate the risks, benefits and alternatives to treatment. -Delirium precautions recommended with patient including - avoiding use of narcotics and SCOURING MACHINE OPERATOR sedatives, limit anticholinergic medications when possible, frequent re-orientation, minimize use of restraints, open window shades during the day and close them at night -Would recommend the following medication changes/additions: Abilify 20 mg daily for mood stabilization/psychosis. Seroquel 50 mg twice daily for mood st abilization/psychosis. Please try to avoid benzodiazepines and anticholinergic medications as this will likely further make patient's mental status worse and possible lead to a fall. will d/c Tegretol today. will consider depakote sprinkles for mood stabilization. continue with Sinemet, Namenda, and Aricept as prescribed. Zyprexa 7.5 mg IM and PO prn for agitation -as patient is not being accepted into a [facility] will go ahead with involuntary psych filing as patient is not taking his medications and is aggressive/impuslive, danger to himself and/or others. Petition completed today by EPS nurse, first cert completed by hospitalist, hand sign writer completed second certificate. will file with courts today. -Will continue to follow along -Please contact with any questions.
[2024-08-20] MEDS: OLANZapine 7.5 MG TAB PO PRN (16:22)
--- NOTE | 2024-08-20 17:28 | P.PN ---
Subjective Progress Note Date: 08/20/24 Patient seen and examined at bedside. Refused medications this morning. Pertinent positives and negatives as discussed above, a complete review of systems was performed and all other systems are negative. Vitals Signs Reviewed. GENERAL: Sleeping, not in any acute distress. Well developed, well nourished. HEENT: Pupils are round and equally reacting to light. EOMI. No scleral icterus. No conjunctival pallor. Normocephalic, atraumatic. No pharyngeal erythema. No thyromegaly. CARDIOVASCULAR: S1 and S2 present. No murmurs, rubs, or gallops. PULMONARY: Chest is clear to auscultation, no wheezing or crackles. ABDOMEN: Soft, nontender, nondistended, normoactive bowel sounds. No palpable organomegaly. MUSCULOSKELETAL: No apparent nodular thickening of joints. No apparent joint swelling and deformities. EXTREMITIES: No apparent cyanosis, clubbing, or pedal edema. NEUROLOGICAL: Gross neurological examination did not reveal any focal deficits. SKIN: Facial dermatitis Data Reviewed Today: Pertinent Labs: No new labs Imaging: No new imaging Assessment and Plan: # worsening dementia with hallucinations -Psychiatry following Abilify to 15 mg daily, Seroquel increased to 50 twice daily, also on Zyprexa as needed for agitation -Continue carbamazepine 200 twice daily, Sinemet 25-100 3 times daily, donepezil 5 nightly, memantine 10 twice daily, ropinirole 1 3 times daily Continue to monitor -Delirium precautions -Per psychiatry patient does meet criteria for inpatient psychiatric admission, needs to go to [facility]. -IV Haldol 20 mg IV 2 mg was given this morning for acute agitation despite getting Zyprexa -Patient did not receive some of his chronic home medications today -Consider repeating an EKG when patient is more calm. QTc at the time of admission was 443. #Macrocytic anemia Hemoglobin 11.8 and MCV 108.9 TSH within normal limits, folic acid and B12 are WNL Monitor CBC Abilify usage Chronic Medical Conditions # Essential hypertension - continue with home Coreg 3.125 #Hyperlidemia - Continue home Atorvastatin 40 mg # Dementia - Continue home medication as above #Parkinson's disease Continue home medication as above #Seizures Continue home medication as above Dispo: [facility] placement Thank you for allowing us to participate in the care of this pleasant patient. Do not hesitate to contact us with questions. Someone can be reached from the [facility] hospitalist group all hours of the day at [phone] or via perfect serve. Objective - Vital Signs Vital signs: Vital Signs Temp 98.1 F 08/19/24 16:40 Pulse 97 08/20/24 08:49 Resp 16 08/20/24 08:49 BP 95/64 08/20/24 08:49 Pulse Ox 97 08/20/24 08:49 FiO2 - Labs CBC & Chem 7: 08/13/24 09:15 08/13/24 09:15
[2024-08-21 04:04] VITALS: TEMP 99
[2024-08-21] MEDS: ACETAMINOPHEN TAB 325 MG TAB PO PRN (04:28)
--- NOTE | 2024-08-21 10:43 | P.PN ---
Subjective Progress Note Date: 08/21/24 Patient seen and examined at bedside. Continues to be quite psychotic/agitated. Ongoing care per psychiatry. Pending patient is pending [facility] bed which would be the appropriate dispo for this patient. Pertinent positives and negatives as discussed above, a complete review of systems was performed and all other systems are negative. Vitals Signs Reviewed. GENERAL: Sleeping, not in any acute distress. Well developed, well nourished. HEENT: Pupils are round and equally reacting to light. EOMI. No scleral icterus. No conjunctival pallor. Normocephalic, atraumatic. No pharyngeal erythema. No thyromegaly. CARDIOVASCULAR: S1 and S2 present. No murmurs, rubs, or gallops. PULMONARY: Chest is clear to auscultation, no wheezing or crackles. ABDOMEN: Soft, nontender, nondistended, normoactive bowel sounds. No palpable organomegaly. MUSCULOSKELETAL: No apparent nodular thickening of joints. No apparent joint swelling and deformities. EXTREMITIES: No apparent cyanosis, clubbing, or pedal edema. NEUROLOGICAL: Gross neurological examination did not reveal any focal deficits. SKIN: Facial dermatitis Data Reviewed Today: Pertinent Labs: No new labs Imaging: No new imaging Assessment and Plan: # worsening dementia with hallucinations -Psychiatry following Abilify to 15 mg daily, Seroquel increased to 50 twice daily, also on Zyprexa as needed for agitation -Continue carbamazepine 200 twice daily, Sinemet 25-100 3 times daily, donepezil 5 nightly, memantine 10 twice daily, ropinirole 1 3 times daily Continue to monitor -Delirium precautions -Per psychiatry patient does meet criteria for inpatient psychiatric admission, needs to go to [facility]. -IV Haldol 20 mg IV 2 mg was given this morning for acute agitation despite getting Zyprexa -Patient did not receive some of his chronic home medications today -Consider repeating an EKG when patient is more calm. QTc at the time of admission was 443. #Macrocytic anemia Hemoglobin 11.8 and MCV 108.9 TSH within normal limits, folic acid and B12 are WNL Monitor CBC Abilify usage Chronic Medical Conditions # Essential hypertension - continue with home Coreg 3.125 #Hyperlidemia - Continue home Atorvastatin 40 mg # Dementia - Continue home medication as above #Parkinson's disease Continue home medication as above #Seizures Continue home medication as above Dispo: [facility] placement Thank you for allowing us to participate in the care of this pleasant patient. Do not hesitate to contact us with questions. Someone can be reached from the [facility] hospitalist group all hours of the day at [phone] or via perfect serve. Objective - Vital Signs Vital signs: Vital Signs Temp 99 F 08/21/24 04:03 Pulse 92 08/21/24 08:30 Resp 20 08/21/24 08:30 BP 147/82 08/21/24 08:30 Pulse Ox 98 08/21/24 08:30 FiO2 - Labs CBC & Chem 7: 08/13/24 09:15 08/13/24 09:15
--- NOTE | 2024-08-21 14:28 | P.PN ---
Progress Note - Text Progress Note Date: 08/21/24 Interval history: Patient was seen today for psychiatric follow-up. Patient was moving around r estless thrashing in his bed. Patient was approached by flex o writer operator to be evaluated, patient acknowledges flex o writer operator, was able to correctly identify his name and knew that he was and "michael Beaulieu". He for the most part was illogical, disorganized, responding to internal stimuli. Difficult to redirect and understand. According to patient's nurse, patient has been refusing most p.o. medications. Has not been eating well. Also has been receiving several as needed medications, states that the Zyprexa dose has not been helping enough at this time. MENTAL STATUS EXAM: General Appearance: Patient appears to be thin, elderly, stated age is moving around his bed, disorganized responding to internal stimuli Behavior: Mainly difficult to redirect, uncooperative. Speech: Rambling in Frisian and Vietnamese, mostly incoherent, more concrete today Mood/Affect: Unable to obtain Suicidality/Homicidality: Denies Perceptions: Unable to obtain, responding to internal stimuli Though content/process: Illogical, rambling, disorganized. [place] Memory and concentration: Unable to obtain. 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 will continue following along daily and adjusting medications as needed -Patient DOES NOT have decision making capacity at this time and is unable to reason through and communicate/appreciate the risks, benefits and alternatives to treatment. -Delirium precautions recommended with patient including - avoiding use of narcotics and QC SCIENTIST sedatives, limit anticholinergic medications when possible, frequent re-orientation, minimize use of restraints, open window shades during the day and close them at night -Would recommend the following medication changes/additions: Decrease Abilify 10 mg daily for mood stabilization/psychosis. Increase Seroquel 100 mg twice daily for mood stabilization/psychosis. Please try to avoid benzodiazepines and anticholinergic medications as this will likely further make patient's mental status worse and possible lead to a fall. Start depakote sprinkles 250 mg twice daily for mood stabilization. continue with Sinemet, Namenda, and Aricept as prescribed. Increase Zyprexa 10 mg IM and PO prn for agitation -as patient is not being accepted into a [facility] will go ahead with involuntary psych filing as patient is not taking his medications and is aggressive/impuslive, danger to himself and/or others. Petition completed today by EPS nurse, first cert completed by hospitalist, flex o writer operator completed second certificate. awaiting deferral and hearing date. -Will continue to follow along -Please contact with any questions.
[2024-08-21] MEDS: SODIUM CHLORIDE 0.9% 1,000 ML IV ONE (14:58)
[2024-08-21 15:07] LABS: Basophils % (A) 0 %; Eosinophils # (A) 0.3 k/uL (0-0.7); Eosinophils % (A) 4 %; HCT 33.8 % (39.0-53.0); HGB 11.4 gm/dL (13.0-17.5); Lymphocytes # (A) 2.2 k/uL (1.0-4.8); Lymphocytes % (A) 33 %; MCH 36.6 pg (25.0-35.0); MCHC 33.7 g/dL (31.0-37.0); MCV 108.6 fL (80.0-100.0); Macrocytosis Marked; Mean Platelet Volume 7.6; Monocytes # (A) 0.4 k/uL (0-1.0); Monocytes % (A) 6 %; Neutrophils # (A) 3.7 k/uL (1.3-7.7); Neutrophils % (A) 55 %; Platelet Count 273 k/uL (150-450); RBC 3.11 m/uL (4.30-5.90); RDW 13.9 % (11.5-15.5); WBC 6.7 k/uL (3.8-10.6)
[2024-08-21] MEDS: DIVALPROEX SPRINKLE 125 MG CAP.SPRINK PO SCH (15:16)
[2024-08-21] MEDS: QUEtiapine 50 MG TAB PO STA (15:16)
[2024-08-21 15:20] LABS: ALT 18 U/L (4-49); AST 38 U/L (17-59); African American GFR (CKD) 74 (>60 ml/min/1.73 sqM); Albumin 3.8 g/dL (3.5-5.0); Alkaline Phosphatase 138 U/L (38-126); Anion Gap 7 mmol/L; Blood Urea Nitrogen 36 mg/dL (9-20); Calcium 9.4 mg/dL (8.4-10.2); Carbon Dioxide 23 mmol/L (22-30); Chloride 112 mmol/L (98-107); Glucose 97 mg/dL (74-99); Non-African American GFR(CKD) 64 (>60 ml/min/1.73 sqM); Sodium 142 mmol/L (137-145); Total Bilirubin 1.2 mg/dL (0.2-1.3); Total Protein 6.6 g/dL (6.3-8.2)
[2024-08-21] MEDS: OLANZapine 10 MG VIAL IM PRN (18:11)
[2024-08-22] MEDS: QUEtiapine 100 MG TAB PO SCH (01:15)
[2024-08-22 09:19] VITALS: BP 111/68; PULSE 95; RESP 16
[2024-08-22] MEDS: ARIPiprazole 10 MG TAB PO SCH (09:20)
[2024-08-22] MEDS: QUEtiapine 50 MG TAB PO SCH (09:20)
--- NOTE | 2024-08-22 14:20 | P.PN ---
Progress Note - Text Progress Note Date: 08/22/24 Interval history: Patient was seen today for psychiatric follow-up. Patient was sleeping soundly today. Patient's nurse claims that patient was doing a bit better today. He apparently took Seroquel Depakote and other medications this morning with the first try however was trying to cheek it. Patient did ended up swallowing it. Nurse attempted to give him further medications later and patient spat them out. Nurse claims that patient is less agitated today and has been sleeping through most of the morning. MENTAL STATUS EXAM: General Appearance: Patient appears to be thin, elderly, sleeping in his bed soundly Behavior: Patient is sleeping in his bed today. Speech: Unable to assess Mood/Affect: Unable to obtain Suicidality/Homicidality: Unable to assess Perceptions: Unable to obtain Though content/process: Unable to obtain Memory and concentration: Unable to obtain. 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 will continue following along daily and adjusting medications as needed -Patient DOES NOT have decision making capacity at this time and is unable to reason through and communicate/appreciate the risks, benefits and alternatives to treatment. -Delirium precautions recommended with patient including - avoiding use of narcotics and ELECTRICIAN MACHINE SHOP sedatives, limit anticholinergic medications when possible, frequent re-orientation, minimize use of restraints, open window shades during the day and close them at night -Would recommend the following medication changes/additions: D/c Abilify and switch onto just Seroquel, increase to 100 mg twice daily for mood stabilization/psychosis. Please try to avoid benzodiazepines and anticholinergic medications as this will likely further make patient's mental status worse and possible lead to a fall. depakote sprinkles 250 mg twice daily for mood stabilization. continue with Sinemet, Namenda, and Aricept as prescribed. Zyprexa 10 mg IM and PO prn for agitation -patient apparently is currently on an active deferral from a previous psych hospitalization and now will file demand for hearing. -Will continue to follow along -Please contact with any questions.
--- NOTE | 2024-08-22 14:55 | P.PN ---
Subjective Progress Note Date: 08/22/24 Patient seen and examined at bedside. Continues to be quite psychotic/agitated. Ongoing care per psychiatry. Pending patient is pending dispo to psych facility, also pending court hearing. Vitals Signs Reviewed. GENERAL: Sleeping, not in any acute distress. Well developed, well nourished. HEENT: Pupils are round and equally reacting to light. EOMI. No scleral icterus. No conjunctival pallor. Normocephalic, atraumatic. No pharyngeal erythema. No thyromegaly. CARDIOVASCULAR: S1 and S2 present. No murmurs, rubs, or gallops. PULMONARY: Chest is clear to auscultation, no wheezing or crackles. ABDOMEN: Soft, nontender, nondistended, normoactive bowel sounds. No palpable organomegaly. MUSCULOSKELETAL: No apparent nodular thickening of joints. No apparent joint swelling and deformities. EXTREMITIES: No apparent cyanosis, clubbing, or pedal edema. NEUROLOGICAL: Gross neurological examination did not reveal any focal deficits. SKIN: Facial dermatitis Data Reviewed Today: Pertinent Labs: No new labs Imaging: No new imaging Assessment and Plan: # worsening dementia with hallucinations -Psychiatry following and adjusting meds as needed Continue to monitor -Delirium precautions -Per psychiatry patient does meet criteria for inpatient psychiatric admission, #Macrocytic anemia Hemoglobin 11.8 and MCV 108.9 TSH within normal limits, folic acid and B12 are WNL Monitor CBC Abilify usage Chronic Medical Conditions # Essential hypertension - continue with home Coreg 3.125 #Hyperlidemia - Continue home Atorvastatin 40 mg # Dementia - Continue home medication as above #Parkinson's disease Continue home medication as above #Seizures Continue home medication as above Dispo: [facility] psych placement Thank you for allowing us to participate in the care of this pleasant patient. Do not hesitate to contact us with questions. Someone can be reached from the [facility] [place] hospitalist group all hours of the day at [phone] or via perfect serve. Objective - Vital Signs Vital signs: Vital Signs Temp 99 F 08/21/24 04:03 Pulse 95 08/22/24 09:00 Resp 16 08/22/24 09:00 BP 111/68 08/22/24 09:00 Pulse Ox 96 08/22/24 09:00 FiO2 Intake & Output 08/21/24 08/22/24 08/22/24 18:59 06:59 18:59 Output Total 0 Balance 0 Output: Urine 0 - Labs CBC & Chem 7: 08/21/24 14:59 08/21/24 14:59 Labs: Abnormal Lab Results - Last 24 Hours (Table) 08/21/24 08/21/24 Range/Units 14:59 14:59 RBC 3.11 L (4.30-5.90) m/uL Hgb 11.4 L (13.0-17.5) gm/dL Hct 33.8 L (39.0-53.0) % MCV 108.6 H (80.0-100.0) fL MCH 36.6 H (25.0-35.0) pg Macrocytosis Marked A Chloride 112 H (98-107) mmol/L BUN 36 H (9-20) mg/dL Alkaline Phosphatase 138 H (38-126) U/L
[2024-08-23] MEDS ORDERED: QUEtiapine 100 MG TAB PO SCH (09:00)
== END 2024-08-22 21:29 ==
LOC: EEVIPCON 10:45 → EC 10:45
DX: F29 Unspecified psychosis not due to a substance or known physiological condition (principal); F91.1 Conduct disorder, childhood-onset type; Z88.0 Allergy status to penicillin
CPT/HCPCS: 36415; 93005; 80053; 85025; 81003; 80306; 87635; 90715; 99285; 96375; 96376; 96361 ×2; 96374; 96372 ×7; G0480; J2060; J1630 ×2; J3486 ×3; 80320